=== PATIENT | male | born 1960 | race American Indian/Alaskan Native ===

== ENCOUNTER 2016-09-21 07:48 | Inpatient (IN) | payer MEDICARE, OTHER ==
[2016-09-21 07:49] VITALS: BMI 29.2
[2016-09-21] MEDS: Albuterol-Ipratrop 3 mg / 0.5 (3 ml) UD IH SCH ×3 (08:45→09:00)
[2016-09-21] MEDS ORDERED: Albuterol-Ipratrop 3 mg / 0.5 (3 ml) UD ONE ×2 (08:52→09:06)
--- NOTE | 2016-09-21 09:00 | C.PDOC ---
Addendum entered and electronically signed by Darlene Agarwal PA-C 09/21/16 13 :40: Addendum Addendum: 09/21/16 12:39 Dr Flowers calls ED back he requests admitting to Dr Hobbs service and will see patient at consult Contact Dr Hobbs who accepts patient onto service Original Note: History Of Present Illness <Darlene Agarwal - Last Filed: 09/21/16 13:39> <Grace Marshall - Last Filed: 09/21/16 18:27> 55 y/o male, PMHx of renal transplant and HIV, presents to ED with complaint of "feeling like fluid in my lungs", generalized weakness, and right side chest pain worsening over the last 2-3 days. Patient notes he has had difficulty breathing with some associated chest tightness. He otherwise denies fever, chills, abdominal pain, nausea, vomiting, diarrhea, injury or trauma, or history of asthma. (Darlene Agarwal) History Per: Patient History/Exam Limitations: no limitations Onset/Duration Of Symptoms: Days (2-3) Current Symptoms Are (Timing): Worse Recent travel outside of the [place]: No <Darlene Agarwal - Last Filed: 09/21/16 13:39> <Grace Marshall - Last Filed: 09/21/16 18:27> Time Seen by Provider: 09/21/16 08:38 Chief Complaint (Nursing): Chest Pain Past Medical History Reviewed: Historical Data, Nursing Documentation, Vital Signs - Medical History PMH: HIV, HTN, Chronic Kidney Disease (RIGHT KIDNEY TRANSPLANT 2012) Family History: States: Unknown Family Hx - Social History Hx Tobacco Use: No Hx Alcohol Use: No Hx Substance Use: No - Immunization History Hx Tetanus Toxoid Vaccination: Yes Hx Influenza Vaccination: Yes Hx Pneumococcal Vaccination: Yes <Darlene Agarwal - Last Filed: 09/21/16 13:39> Review Of Systems Except As Marked, All Systems Reviewed And Found Negative. Constitutional: Negative for: Fever, Chills Cardiovascular: Negative for: Chest Pain Respiratory: Positive for: Wheezing. Negative for: Cough, Shortness of Breath Gastrointestinal: Negative for: Nausea, Vomiting, Abdominal Pain, Diarrhea <Darlene Agarwal - Last Filed: 09/21/16 13:39> Physical Exam - Physical Exam Appears: Non-toxic, Other (mild respiratory distress) Skin: Warm, Dry Head: Atraumatic, Normacephalic Eye(s): bilateral: Normal Inspection, EOMI Nose: Normal Oral Mucosa: Moist Throat: Normal, No Erythema, No Exudate Neck: Normal ROM Chest: Symmetrical, Tenderness (right chest wall) Cardiovascular: Rhythm Regular, No Murmur Respiratory: No Accessory Muscle Use, No Rales, No Rhonchi, Wheezing ( bilaterally) Gastrointestinal/Abdominal: Soft, No Tenderness, No Distention, No Guarding, No Rebound, Other (obese) Back: Normal Inspection, No CVA Tenderness Extremity: Normal ROM, No Pedal Edema, Capillary Refill (< 2 sec. ), Other (AV fistula right arm) Neurological/Psych: Oriented x3, Normal Speech Gait: Steady <Darlene Agarwal - Last Filed: 09/21/16 13:39> ED Course And Treatment - Laboratory Results Result Diagrams: 09/21/16 08:50 09/21/16 08:50 Lab Interpretation: Abnormal ECG: Interpreted By Me, Viewed By Me ECG Rhythm: Sinus Tachycardia ECG Interpretation: No Acute Changes Rate From EC O2 Sat by Pulse Oximetry: 96 (RA) Pulse Ox Interpretation: Normal - Radiology CXR: Interpreted by Me, Viewed By Me CXR Interpretation: Yes: Infiltrates (right lower lobe) <Darlene Agarwal - Last Filed: 09/21/16 13:39> - Laboratory Results Result Diagrams: 09/21/16 08:50 09/21/16 08:50 <Grace Marshall - Last Filed: 09/21/16 18:27> Medical Decision Making <Darlene Agarwal - Last Filed: 09/21/16 13:39> <Grace Marshall - Last Filed: 09/21/16 18:27> Medical Decision Making: Plan: * duoneb treatment * EKG * CxR * Bloodwork * Reassess Progress: Labs show leukocytosis and XRay shows right lobar pneumonia. order blood cultures and IV antibiotics case discussed with Dr Marshall who agrees with plan for admission Attempt to contact Dr Flowers with no response Spoke with medicine transfer station attendant Dr Hosea Oseguera who accepts patient to service (Darlene Agarwal) Disposition - Disposition Disposition Time: 11:10 - POA Present On Arrival: None Core Measure Indicators: Pneumonia <Darlene Agarwal - Last Filed: 09/21/16 13:39> <Grace Marshall - Last Filed: 09/21/16 18:27> - Disposition Condition: STABLE - Clinical Impression Clinical Impression: Pneumonia - PA / ROD BUSTER / Resident Statement / has reviewed & agrees with the documentation as recorded. - Scribe Statement The provider has reviewed the documentation as recorded by the Scribe <Darlene Agarwal - Last Filed: 09/21/16 13:39> - PA / ROD BUSTER / Resident Statement / has reviewed & agrees with the documentation as recorded. <Grace Marshall - Last Filed: 09/21/16 18:27> - Scribe Statement Grey Shoemaker Provider Scribe Attestation: All medical record entries made by the Scribe were at my direction and personally dictated by me. I have reviewed the chart and agree that the record accurately reflects my personal performance of the history, physical exam, medical decision making, and the department course for this patient. I have also personally directed, reviewed, and agree with the discharge instructions and disposition. (Darlene Agarwal)
[2016-09-21 09:03] LABS: BASO # 0.1 K/uL (0.0-0.2); BASO % 0.4 % (0.0-2.0); EOS % 0.3 % (0.0-4.0); HEMATOCRIT 42.2 % (35.0-51.0); LYMPH # 0.5 K/uL (1.0-4.3); LYMPH % 2.9 % (20.0-40.0); MEAN CELL VOLUME 68.8 fL (80.0-94.0); MEAN CORPUSCULAR HEMOGLOBIN 21.3 pg (27.0-31.0); MEAN PLATELET VOLUME 9.2 fL (7.2-11.7); MONO # 1.3 K/uL (0.0-0.8); MONO % 7.3 % (0.0-10.0); PLATELET COUNT 154 K/uL (130-400); RED CELL DISTRIBUTION WIDTH 14.7 % (11.5-14.5); WHITE BLOOD COUNT 18.1 K/uL (4.8-10.8)
[2016-09-21 09:09] LABS: INR 1.1
[2016-09-21 09:10] LABS: CHLORIDE 102 mmol/L (98-107); POTASSIUM 4.6 mmol/L (3.6-5.2); SODIUM 138 mmol/L (132-148)
[2016-09-21 09:12] LABS: AST/SGOT 18 U/L (17-59); CARBON DIOXIDE 26 mmol/L (22-30); GFR AFRICAN-AMERICAN 54
[2016-09-21 09:13] LABS: ALB/GLOB RATIO 1.3 (1.0-2.1); ALKALINE PHOSPHATASE 79 U/L (38-126); ALT/SGPT 24 U/L (21-72); BLOOD UREA NITROGEN 17 mg/dL (9-20); CALCIUM 9.2 mg/dl (8.6-10.4); GLUCOSE,RANDOM 122 mg/dL (75-110); TOTAL PROTEIN 7.9 g/dL (6.3-8.3)
[2016-09-21] MEDS ORDERED: Sodium Chloride 0.9% 1,000 ML IV ONE (09:41)
[2016-09-21] MEDS ORDERED: Moxifloxacin IV 400mg/250ml NS 400 MG/250 ML BAG IV STA (09:41)
[2016-09-21] MEDS ORDERED: Moxifloxacin IV 400mg/250ml NS 400 MG/250 ML BAG IVPB ONE (10:00)
[2016-09-21 10:01] LABS: NEUTROPHIL 85 % (50-75); TOTAL CELLS COUNTED 100
[2016-09-21 10:03] LABS: LARGE PLATELETS PRESENT
[2016-09-21 11:38] LABS: RBC URINE 1 /hpf (0-3); URINE BILIRUBIN NEGATIVE (NEGATIVE); URINE BLOOD 1+ (NEGATIVE); URINE COLOR Yellow (YELLOW); URINE GLUCOSE (UA) NORMAL (Normal); URINE KETONE NEGATIVE (NEGATIVE); URINE LEUKOCYTE ESTERASE NEG Leu/uL (Negative); URINE PROTEIN 2+ mg/dL (NEGATIVE); WBC URINE 2 /hpf (0-5)
--- NOTE | 2016-09-21 12:19 | RAD ---
Chest x-ray single frontal view History: Shortness of breath. Comparison: None available. Findings: Moderate to severe venous congestion. Confluent airspace consolidative changes at the right lung base. Cardiomegaly. Biapical pleural thickening. Degenerative changes in the spine and shoulders. Impression: Moderate to severe venous congestion. Confluent airspace consolidative changes at the right lung base. Cardiomegaly.
[2016-09-21 14:20] VITALS: RESP 20
[2016-09-21] MEDS ORDERED: ETRAVIRINE 200 MG PO SCH (14:45)
[2016-09-21] MEDS ORDERED: ATROPINE PO SCH (14:45)
[2016-09-21] MEDS ORDERED: MYCOPHENOLATE SODIUM 180 MG PO SCH (14:45)
[2016-09-21] MEDS ORDERED: DIPHENOXYLATE PO SCH (14:45)
[2016-09-21] MEDS: Oxycodone/Acetaminophen 5/325 mg Tab PO PRN (17:18)
[2016-09-21] MEDS: Albuterol-Ipratrop 3 mg / 0.5 (3 ml) UD INH SCH (19:10)
--- NOTE | 2016-09-21 22:13 | CP.PCM.HP ---
History of Present Illness - History of Present Illness History of Present Illness: Chief complaint: Cough chest pain History present illness: 55-year-old male with history of HIV, renal failure, status post a kidney transplant came to the emergency room with the complaining of 3 days history of cough, right-sided chest pain, and not feeling well. Patient last week went to see the associate professor of counseling. Today he supposed to be seeing the infectious disease specialist, but his condition got worse he came into the emergency room. In the emergency room he was having increasing cough, and mucus production, which was white in color, he was also not feeling well, chills, and associated with right-sided pleuritic chest pain. The pain was significantly worse, took Percocet for the pain. Taking deep breath also causes increasing pain on the right side. He did not have any nausea, no vomiting noted. But poor appetite noted. Patient is making urine at this time, he denies any headache, no dizziness noted. No recent travel, but no sick exposure Past medical history: HIV disease, kidney failure, status post transplant Surgical history: Renal transplant Allergy: No known drug allergy Personal history: Patient is a nonsmoker, he denies any alcohol. Patient lives with the family members. No sick exposure recently Family history significant for kidney disease Review of system: Complaining of no headache, complaining of cough, with the minimal mucus production, right-sided chest discomfort, associate with the chest pain, pleuritic in nature. No nausea vomiting noted. Denies any diarrhea, no rash. Leg swelling negative On examination: Vital signs reviewed Oxygen saturation is normal chest good air entry bilaterally, expiratory wheezing and rales noted bilaterally regular heart sound, nontender abdomen. Extent is no pedal edema Chest x-ray showing evidence of right lower lung pneumonia. Labs elevated WBC noted. Mild elevation of the creatinine noted Assessment/condition: 55-year-old male with history of HIV disease, kidney transplant on medications. Currently patient is on anti-retroviral, as well as immunosuppressive treatment. Being maintained with medications. History of undetectable viral load. Patient now admitted with a possible acute community-acquired pneumonia on the right lower lung. We'll get a CT scan of the chest. Currently on Avelox. Infectious disease evaluation. Bronchial dilators. Kidney function monitoring. We'll follow the patient Present on Admission - Present on Admission Any Indicators Present on Admission: No History of DVT/PE: No History of Uncontrolled Diabetes: No Urinary Catheter: No Decubitus Ulcer Present: No Past Patient History - Past Medical History & Family History Past Medical History?: Yes - Past Social History Smoking Status: Never Smoked - CARDIAC Hx Hypertension: Yes - PULMONARY Hx Respiratory Disorders: No - NEUROLOGICAL Hx Neurological Disorder: No - HEENT Hx HEENT Problems: No - RENAL Hx Chronic Kidney Disease: Yes (RIGHT KIDNEY TRANSPLANT 2012) - ENDOCRINE/METABOLIC Hx Endocrine Disorders: No - HEMATOLOGICAL/ONCOLOGICAL Hx Human Immunodeficiency Virus (HIV): Yes - INTEGUMENTARY Hx Dermatological Problems: No - MUSCULOSKELETAL/RHEUMATOLOGICAL Hx Musculoskeletal Disorders: No Hx Falls: No - GASTROINTESTINAL Hx Gastrointestinal Disorders: No - GENITOURINARY/GYNECOLOGICAL Hx Genitourinary Disorders: Yes Hx Prostate Problems: Yes - PSYCHIATRIC Hx Substance Use: No - SURGICAL HISTORY Hx Surgeries: Yes Hx Arteriovenous Shunt: Yes Hx Kidney Transplant: Yes (RIGHT KIDNEY) Hx Vascular Access Device: Yes (RIGHT AV FISTULA) - ANESTHESIA Hx Anesthesia: Yes Hx Anesthesia Reactions: No Meds Allergies/Adverse Reactions: Allergies Allergy/AdvReac Type Severity Reaction Status Date / Time No Known Allergies Allergy Verified 09/21/16 08:00 Results - Vital Signs Recent Vital Signs: Last Vital Signs Temp 98.6 F 09/21/16 15:05 Pulse 95 H 09/21/16 19:13 Resp 20 09/21/16 15:05 BP 132/73 09/21/16 15:05 Pulse Ox 96 09/21/16 15:05 - Labs Result Diagrams: 09/21/16 08:50 09/21/16 08:50
[2016-09-22] MEDS: Albuterol-Ipratrop 3 mg / 0.5 (3 ml) UD INH SCH ×4 (03:29→19:26)
[2016-09-22 06:53] LABS: BASO % 0.4 % (0.0-2.0); EOS # 0.2 K/uL (0.0-0.7); EOS % 1.3 % (0.0-4.0); HEMATOCRIT 41.2 % (35.0-51.0); LYMPH # 1.2 K/uL (1.0-4.3); LYMPH % 10.3 % (20.0-40.0); MEAN CORPUSCULAR HEMOGLOBIN 21.4 pg (27.0-31.0); MEAN CORPUSCULAR HGB CONC 30.9 g/dL (33.0-37.0); MEAN PLATELET VOLUME 9.5 fL (7.2-11.7); MONO # 1.2 K/uL (0.0-0.8); MONO % 10.3 % (0.0-10.0); NRBC % 0.1 % (0.0-2.0); RED CELL DISTRIBUTION WIDTH 15.3 % (11.5-14.5)
[2016-09-22] MEDS: Oxycodone/Acetaminophen 5/325 mg Tab PO PRN ×2 (06:56→15:17)
[2016-09-22 07:31] LABS: CHLORIDE 103 mmol/L (98-107); POTASSIUM 4.4 mmol/L (3.6-5.2); SODIUM 138 mmol/L (132-148)
[2016-09-22 07:34] LABS: BLOOD UREA NITROGEN 17 mg/dL (9-20); CARBON DIOXIDE 23 mmol/L (22-30); GFR AFRICAN-AMERICAN > 60; GLUCOSE,RANDOM 105 mg/dL (75-110)
[2016-09-22] MEDS: Tmp-Smz 800 mg-160 mg DS Tab PO SCH (08:30)
[2016-09-22] MEDS ORDERED: ETRAVIRINE 200 MG PO SCH (10:00)
[2016-09-22] MEDS: Moxifloxacin IV 400mg/250ml NS 400 MG/250 ML BAG IVPB SCH (10:49)
--- NOTE | 2016-09-22 10:52 | CT ---
PROCEDURE: CT Chest without contrast HISTORY: pneumonia COMPARISON: None. TECHNIQUE: Contiguous axial images were obtained through the chest without intravenous contrast enhancement. Sagittal and coronal reconstructions were performed. Radiation dose (DLP): 708.98 mGy-cm. This CT exam was performed using one or more of the following dose reduction techniques: Automated exposure control, adjustment of the mA and/or kV according to patient size, and/or use of iterative reconstruction technique. FINDINGS: LUNGS: Dense consolidation in the anterior segment right upper lobe. Followup to clearing to exclude underlying neoplasm. Patchy opacities are seen elsewhere throughout the right upper lobe, likely reflecting an infectious process. There is no other opacity identified elsewhere. Minimal small airways disease noted in the right middle lobe, manifested as a tree-in-bud appearance. 3 mm calcified nodule, subpleural, left apex, likely granulomatous. MEDIASTINUM: Unremarkable thoracic aorta. No aneurysm. Normal sized heart. Main pulmonary artery unremarkable. No vascular congestion. No lymphadenopathy. PLEURA: No pleural fluid. No pneumothorax. BONES: No fracture. No destructive lesion. UPPER ABDOMEN: Severely atrophic kidneys bilaterally consistent with chronic renal disease. OTHER FINDINGS: None. IMPRESSION: Right upper lobe pulmonary infiltrate. Followup to clearing advised to exclude underlying neoplasm. Minimal small airways disease right middle lobe common nonspecific. Atrophic kidneys consistent with chronic renal disease.
--- NOTE | 2016-09-22 14:08 | CP.PCM.CON ---
History of Present Illness - History of Present Illness History of Present Illness: History present illness: 55-year-old male with history of HIV, renal failure, status post a kidney transplant came to the emergency room with the complaining of 3 days history of cough, right-sided chest pain, and not feeling well. Patient last week went to see the major sales associate. Today he supposed to be seeing the infectious disease specialist, but his condition got worse he came into the emergency room. In the emergency room he was having increasing cough, and mucus production, which was white in color, he was also not feeling well, chills, and associated with right-sided pleuritic chest pain. The pain was significantly worse, took Percocet for the pain. Taking deep breath also causes increasing pain on the right side. He did not have any nausea, no vomiting noted. But poor appetite noted. Patient is making urine at this time, he denies any headache, no dizziness noted. No recent travel, but no sick exposure Past medical history: HIV disease, kidney failure, status post transplant Surgical history: Renal transplant Allergy: No known drug allergy Personal history: Patient is a nonsmoker, he denies any alcohol. Patient lives with the family members. No sick exposure recently OTHER PMH: HIV NEPHROPATHY DONOR KIDNEY TRANSPLANT HIV DISEASE HTN PSH: KIDNEY TRANSPLANT AV FISTULA RIGHT ELBOW REPAIR CONSULT DICTATED AGREE WITH TREATMENT FOR PNEUMONIA ADD MYFORTIC- NOT BEING GIVEN MONITOR RENAL FUNCTION Past Patient History - Past Medical History & Family History Past Medical History?: Yes - Past Social History Smoking Status: Never Smoked - CARDIAC Hx Hypertension: Yes - PULMONARY Hx Respiratory Disorders: No - NEUROLOGICAL Hx Neurological Disorder: No - HEENT Hx HEENT Problems: No - RENAL Hx Chronic Kidney Disease: Yes (RIGHT KIDNEY TRANSPLANT 2012) - ENDOCRINE/METABOLIC Hx Endocrine Disorders: No - HEMATOLOGICAL/ONCOLOGICAL Hx Human Immunodeficiency Virus (HIV): Yes - INTEGUMENTARY Hx Dermatological Problems: No - MUSCULOSKELETAL/RHEUMATOLOGICAL Hx Musculoskeletal Disorders: No Hx Falls: No - GASTROINTESTINAL Hx Gastrointestinal Disorders: No - GENITOURINARY/GYNECOLOGICAL Hx Genitourinary Disorders: Yes Hx Prostate Problems: Yes - PSYCHIATRIC Hx Substance Use: No - SURGICAL HISTORY Hx Surgeries: Yes Hx Arteriovenous Shunt: Yes Hx Kidney Transplant: Yes (RIGHT KIDNEY) Hx Vascular Access Device: Yes (RIGHT AV FISTULA) - ANESTHESIA Hx Anesthesia: Yes Hx Anesthesia Reactions: No Meds Allergies/Adverse Reactions: Allergies Allergy/AdvReac Type Severity Reaction Status Date / Time No Known Allergies Allergy Verified 09/21/16 08:00 - Medications Medications: Current Medications Albuterol/Ipratropium (Duoneb 3 Mg/0.5 Mg (3 Ml) Ud) 3 ml INH RQ6 [facility] Last Admin: 09/22/16 13:19 Dose: 3 ml Darunavir (Prezista) 600 mg PO BID [facility] Last Admin: 09/22/16 10:47 Dose: 600 mg Heparin Sodium (Porcine) (Heparin) 5,000 units SC Q12 [facility] Last Admin: 09/22/16 10:48 Dose: 5,000 units Home Med (Mycophenolate Sodium [Mycophenolic Acid]) 180 mg PO DAILY [facility] Last Admin: 09/21/16 15:12 Dose: Not Given Home Med (Etravirine [Intelence]) 200 mg PO BID [facility] Moxifloxacin HCl (Avelox Iv 400mg/250ml Ns) 400 mg in 250 mls @ 167 mls/hr IVPB Q24H [facility] Last Admin: 09/22/16 10:49 Dose: 167 mls/hr Oxycodone/Acetaminophen (Percocet 5/325 Mg Tab) 1 tab PO Q6H PRN PRN Reason: Pain, severe (8-10) Stop: 09/24/16 16:32 Last Admin: 09/22/16 06:56 Dose: 1 tab Prednisone (Prednisone Tab) 5 mg PO DAILY [facility] Last Admin: 09/22/16 10:47 Dose: 5 mg Raltegravir (Isentress) 400 mg PO BID [facility] Last Admin: 09/22/16 10:45 Dose: 400 mg Ritonavir (Norvir) 100 mg PO BID [facility] Tacrolimus (Prograf Cap) 0.5 mg PO QWK [facility] Trimethoprim/Sulfamethoxazole (Bactrim Ds Tab) 1 tab PO MWF [facility] Last Admin: 09/22/16 08:30 Dose: 1 tab Results - Vital Signs Recent Vital Signs: Last Vital Signs Temp 98.4 F 09/22/16 07:34 Pulse 98 H 09/22/16 07:34 Resp 20 09/22/16 07:34 BP 132/82 09/22/16 07:34 Pulse Ox 96 09/22/16 07:34 - Labs Result Diagrams: 09/22/16 06:15 09/22/16 06:15 Labs: Laboratory Results - last 24 hr 09/22/16 09/22/16 06:15 06:15 WBC 12.0 H RBC 5.97 H Hgb 12.7 Hct 41.2 MCV 69.0 L MCH 21.4 L MCHC 30.9 L RDW 15.3 H Plt Count 162 MPV 9.5 Neut % (Auto) 77.7 H Lymph % (Auto) 10.3 L [place] % (Auto) 10.3 H Eos % (Auto) 1.3 Baso % (Auto) 0.4 Neut # 9.3 H Lymph # 1.2 [place] # 1.2 H Eos # 0.2 Baso # 0.0 Sodium 138 Potassium 4.4 Chloride 103 Carbon Dioxide 23 Anion Gap 16 BUN 17 Creatinine 1.4 Est GFR ( Amer) > 60 Est GFR (Non-Af Amer) 52 Random Glucose 105 Calcium 9.0
--- NOTE | 2016-09-22 16:40 | CP.PCM.CON ---
History of Present Illness - History of Present Illness History of Present Illness: INFECTIOUS DISEASE CONSULTATION [place] GRAMAJO MD, FACP 3T 351-B 09/22/2016 CHART REVIEWED PT EXAMINED CASE DISCUSSED THIS PT IS A 55 YEAR OLD AAM WHO PRESENTS TO ED YESTERDAY WITH RIGHT SIDED CHEST DISCOMFORT, WEAKNESS, COUGH AND FATIGUE. HE APPARENT[facility] UNTIL ABOUT 3 DAYS PRIOR TO ADMISSION. AGAIN HE PRESENTS WITH COUGH, PLEURITIC CHEST PAIN ON THE RIGHT SIDE AND EASY FATIGABILITY. OF NOTE, HE DOES HAVE DIFFICULTY IN EXPRESSING HIMSELF. PMHX: HIV DISEASE CHRONIC KIDNEY DISEASE REQUIRING A KIDNEY TRANSPLANT, APPARENTLY ON HIS RIGHT LOWER ABDOMEN SITE(?). HTN DYSLIPIDEMIA COMPLIANCE AND ADHERENCE ARE ALWAYS AN ISSUE WITH HIM, INTERMITTENTLY. DENIES ALLERGIES TO MEDS DENIES RECENT TOBACCO USE DENIES RECENT ETOH FAMILY HX IS NOT APPLICABLE NOR AVAILABLE PRESENTLY ROS: FATIGUE COUGH RIGHT CHEST PAIN WITH BREATHING FEELING OF COLD CHILLS VS REVIEWED AND DISCUSSED WITH ER STAFF, ADMITTING PHYSICIAN DR MUNSON AWAKE BUT TIRES EASILY, WANTS TO SLEEP SUPPLE NECK CHEST DECREASED BREATH SOUNDS WITH RALES AND RHONCHI COR RATE IS NOTED ABD IS SOFT NO TENDERNESS EXT NO CYANOSIS CXR; RIGHT LUNG INFILTRATE WBC: 18,000 IMPRESSION: RIGHT LUNG PNEUMONIA, LEUKOCYTOSIS KIDNEY TRANSPLANT-NEEDS HIS CHRONIC SUPPRESSIVE MEDICINES, ESPECIALLY SINCE HE LIVES ALONE, MADE PHARMACY AWARE. Review of Systems - Constitutional Constitutional: Anorexia, Daytime Sleepiness, Fatigue, Lethargy, Weakness - EENT Eyes: absent: As Per HPI, Blind Spots, Blurred Vision, Change in Vision, Decreased Night Vision, Diplopia, Discharge, Dry Eye, Exophthalmos, Floaters, Irritation, Itchy Eyes, Loss of Peripheral Vision, Pain, Photophobia, Requires Corrective Lenses, Sees Flashes, Spots in Vision, Tunnel Vision, Other Visual Disturbances, Loss of Vision, Other Ears: absent: As Per HPI, Decreased Hearing, Ear Discharge, Ear Pain, Tinnitus, Abnormal Hearing, Disequilibrium, Dizziness, Other Nose/Mouth/Throat: absent: Nasal Obstruction, Bleeding Gums, Change in Voice, Dry Mouth, Mouth Lesions - Breasts Additional comments: MALE - Cardiovascular Cardiovascular: Dyspnea on Exertion, Orthopnea Additional comments: RIGHT PLEURITIC CHEST PAIN. - Respiratory Respiratory: Cough, Dyspnea on Exertion, Pain on Inspiration, Chest Congestion, Pain with Coughing - Gastrointestinal Gastrointestinal: Early Satiety. absent: Abdominal Pain - Genitourinary Genitourinary: Difficulty Urinating - Musculoskeletal Musculoskeletal: Arthralgias, Muscle Weakness, Myalgias - Integumentary Integumentary: absent: Dry Skin, New Lesions, Rash - Neurological Neurological: Weakness - Psychiatric Psychiatric: Difficulty Concentrating Past Patient History - Tetanus Immunizations Tetanus Immunization: Unknown - Past Medical History & Family History Past Medical History?: Yes - Past Social History Smoking Status: Never Smoked Chewing Tobacco Use: No Cigar Use: No Alcohol: Occasional Drugs: Denies Home Situation {Lives}: Alone - CARDIAC Hx Cardiac Disorders: Yes Hx Hypercholesterolemia: Yes ((?)) Hx Hypertension: Yes - PULMONARY Hx Respiratory Disorders: No Hx Pneumonia: No - NEUROLOGICAL Hx Neurological Disorder: No - HEENT Hx HEENT Problems: No - RENAL Hx Chronic Kidney Disease: Yes (RIGHT KIDNEY TRANSPLANT 2012) - ENDOCRINE/METABOLIC Hx Endocrine Disorders: No - HEMATOLOGICAL/ONCOLOGICAL Hx Blood Disorders: Yes Hx AIDS: Yes Hx Human Immunodeficiency Virus (HIV): Yes Hx Shingles: Yes ((?)) - INTEGUMENTARY Hx Dermatological Problems: No - MUSCULOSKELETAL/RHEUMATOLOGICAL Hx Musculoskeletal Disorders: No Hx Falls: No - GASTROINTESTINAL Hx Gastrointestinal Disorders: No - GENITOURINARY/GYNECOLOGICAL Hx Genitourinary Disorders: Yes Hx Prostate Problems: Yes Hx Urinary Tract Infection: Yes - PSYCHIATRIC Hx Substance Use: No - SURGICAL HISTORY Hx Surgeries: Yes Hx Arteriovenous Shunt: Yes Hx Kidney Transplant: Yes ( KIDNEY TRANSPLANT 2012) Hx Vascular Access Device: Yes (RIGHT AV FISTULA) - ANESTHESIA Hx Anesthesia: Yes Hx Anesthesia Reactions: No Meds Allergies/Adverse Reactions: Allergies Allergy/AdvReac Type Severity Reaction Status Date / Time No Known Allergies Allergy Verified 09/21/16 08:00 - Medications Medications: Current Medications Albuterol/Ipratropium (Duoneb 3 Mg/0.5 Mg (3 Ml) Ud) 3 ml INH RQ6 [facility] Last Admin: 09/22/16 13:19 Dose: 3 ml Darunavir (Prezista) 600 mg PO BID [facility] Last Admin: 09/22/16 10:47 Dose: 600 mg Heparin Sodium (Porcine) (Heparin) 5,000 units SC Q12 [facility] Last Admin: 09/22/16 10:48 Dose: 5,000 units Home Med (Etravirine [Intelence]) 200 mg PO BID [facility] Home Med (Mycophenolate Sodium [Mycophenolic Acid]) 540 mg PO BID [facility] Moxifloxacin HCl (Avelox Iv 400mg/250ml Ns) 400 mg in 250 mls @ 167 mls/hr IVPB Q24H [facility] Last Admin: 09/22/16 10:49 Dose: 167 mls/hr Oxycodone/Acetaminophen (Percocet 5/325 Mg Tab) 1 tab PO Q6H PRN PRN Reason: Pain, severe (8-10) Stop: 09/24/16 16:32 Last Admin: 09/22/16 15:17 Dose: 1 tab Prednisone (Prednisone Tab) 5 mg PO DAILY [facility] Last Admin: 09/22/16 10:47 Dose: 5 mg Raltegravir (Isentress) 400 mg PO BID [facility] Last Admin: 09/22/16 10:45 Dose: 400 mg Ritonavir (Norvir) 100 mg PO BID [facility] Last Admin: 09/22/16 10:47 Dose: 100 mg Tacrolimus (Prograf Cap) 0.5 mg PO QWK [facility] Trimethoprim/Sulfamethoxazole (Bactrim Ds Tab) 1 tab PO MWF [facility] Last Admin: 09/22/16 08:30 Dose: 1 tab Physical Exam - Constitutional Appears: Non-toxic, Older Than Stated Age Additional comments: DIFFICULTY MAKING HIMSELF UNDERSTOOD - Head Exam Head Exam: ATRAUMATIC - Eye Exam Eye Exam: Normal appearance - ENT Exam ENT Exam: Mucous Membranes Moist - Respiratory Exam Respiratory Exam: Decreased Breath Sounds, Rales, Rhonchi - Cardiovascular Exam Cardiovascular Exam: REGULAR RHYTHM - GI/Abdominal Exam GI & Abdominal Exam: Normal Bowel Sounds, Soft. absent: Tenderness - Rectal Exam Rectal Exam: Deferred - Neurological Exam Neurological exam: Alert, Oriented x3 Additional comments: AFFECT NOTED - Psychiatric Exam Psychiatric exam: Flat Affect - Skin Skin Exam: Dry, Intact, Warm Results - Vital Signs Recent Vital Signs: Last Vital Signs Temp 98.4 F 09/22/16 07:34 Pulse 98 H 09/22/16 07:34 Resp 20 09/22/16 07:34 BP 132/82 09/22/16 07:34 Pulse Ox 96 09/22/16 07:34 - Labs Result Diagrams: 09/22/16 06:15 09/22/16 06:15 Labs: Laboratory Results - last 24 hr 09/22/16 09/22/16 06:15 06:15 WBC 12.0 H RBC 5.97 H Hgb 12.7 Hct 41.2 MCV 69.0 L MCH 21.4 L MCHC 30.9 L RDW 15.3 H Plt Count 162 MPV 9.5 Neut % (Auto) 77.7 H Lymph % (Auto) 10.3 L [place] % (Auto) 10.3 H Eos % (Auto) 1.3 Baso % (Auto) 0.4 Neut # 9.3 H Lymph # 1.2 [place] # 1.2 H Eos # 0.2 Baso # 0.0 Sodium 138 Potassium 4.4 Chloride 103 Carbon Dioxide 23 Anion Gap 16 BUN 17 Creatinine 1.4 Est GFR ( Amer) > 60 Est GFR (Non-Af Amer) 52 Random Glucose 105 Calcium 9.0 Assessment & Plan (1) Pneumonia Status: Acute Priority: High (2) Kidney transplant recipient Status: Chronic Priority: Medium Comment: WILL NEED ALL HIS COMPLEX MEDS TO CONTINUE TO AVOID RESISTANCE AND AVOID MEDICATION FAILURE. (3) HIV (human immunodeficiency virus infection) Status: Chronic Priority: Low Comment: WILL NEED ALL HIS COMPLEX MEDS TO CONTINUE TO AVOID RESISTANCE AND AVOID MEDICATION FAILURE.
[2016-09-22] MEDS ORDERED: MYCOPHENOLATE SODIUM 540 MG PO SCH (18:00)
[2016-09-22] MEDS: ETRAVIRINE 200 MG PO SCH (18:32)
--- NOTE | 2016-09-22 19:25 | CON ---
DATE: 09/22/2016 The patient is a 55-year-old man who has history of HIV and status post kidney transplantation presen ts with several days of cough, wheezing, sputum production of white sputum, right pleuritic chest lorenza n, but no fevers and chills. He went to the Emergency Department and was diagnosed with pneumonia on 09/21. He was admitted and now is being treated for pneumonia. PAST MEDICAL HISTORY: HIV positive, HIV nephropathy, hypertension. He is status post a don or kidney transplantation in 2012 without any acute rejections. He has known chronic kidney disease stage III. PAST SURGICAL HISTORY: Aforementioned kidney transplantation. He had right elbow repair after traum a and a right arm AV fistula. MEDICATIONS: Include Prograf 0.5 mg weekly, Raltegravir and ritonavir and darunavir for HIV, he is o n Myfortic 180 mg 3 tablets twice a day, prednisone 5 mg daily, Bactrim single strength 1 tablet 3 ti mes weekly. SOCIAL HISTORY: Negative for smoking or alcohol abuse. He has history of cocaine snorting in the re mote past. FAMILY HISTORY: Significant for father who had been on maintenance hemodialysis shortly before his d eath many years ago. REVIEW OF SYSTEMS: As aforementioned has dyspnea, coughing, wheezing, sputum production, right pleur itic chest pain, no fevers and chills, no dysuria or gross hematuria. All other review of systems ar e negative. PHYSICAL EXAMINATION: GENERAL: He is a well-developed man in no acute distress when seen. VITAL SIGNS: Blood pressure 132/82, temperature 98.4, pulse is 98, pulse ox 96% on room air. HEENT: He is anicteric. Mouth was clear. NECK: No JVD. LUNGS: Showed increased wheezing and rhonchi throughout both lung vanessa. HEART: Regular rhythm, no murmur. ABDOMEN: Soft, benign. No mass or organomegaly. Right allograft in the right lower quadrant which was soft and nontender. EXTREMITIES: No peripheral edema. NEUROLOGIC: No focal deficits. CAT scan of the chest revealed a right upper lobe consolidation with patchy opacities seen elsewhere in the right upper lobe. LABORATORY DATA: Rest of labs revealed 2+ proteinuria, a white count of 18.1 on admission, now is 12 .0, hemoglobin 12.7, BUN 17, creatinine 1.4. Electrolytes unremarkable. IMPRESSION: The patient has acute pneumonia, status post donor kidney transplantation with stable kidney function, chronic kidney disease stage III, human immunodeficiency virus disease. PLAN: Will be for IV antibiotics as is being done. I will follow up renal function closely and elec trolytes. I would resume the Myfortic which is not being given and I would give this as it was presc ribed previously. Will follow up. Arnulfo Valencia MD cc: [id number] TT: 09/22/2016 19:23:52 Confirmation # [id number] Dictation # [id number]
--- NOTE | 2016-09-22 20:15 | CP.PCM.PN ---
Subjective - Date & Time of Evaluation Date of Evaluation: 09/22/16 Time of Evaluation: 20:14 - Subjective Subjective: Patient is feeling somewhat better. Right-sided chest pain is improving. Cough is less. No fever today. 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 On examination: Vital signs stable. Chest good air entry bilaterally regular heart sound nontender abdomen, no pedal edema CT scan of the chest is showing evidence of right middle lobe infiltrate. Bronchopneumonia noted. Labs reviewed. WBC better, renal functions improving Assessment and recommendation: 55-year-old male with history of HIV disease, renal insufficiency, history renal transplant. Admitted with pneumonia. Neck on antibiotic. Will continue the current treatment. Will follow the patient Objective - Vital Signs/Intake and Output Vital Signs (last 24 hours): Temp Pulse Resp BP Pulse Ox 98.2 F 71 20 120/64 97 09/22/16 15:15 09/22/16 15:15 09/22/16 15:15 09/22/16 15:15 09/22/16 15:15 Intake and Output: 09/22/16 09/23/16 18:59 06:59 Intake Total 500 Balance 500 - Medications Medications: Current Medications Albuterol/Ipratropium (Duoneb 3 Mg/0.5 Mg (3 Ml) Ud) 3 ml INH RQ6 [facility] Last Admin: 09/22/16 19:26 Dose: 3 ml Darunavir (Prezista) 600 mg PO BID [facility] Last Admin: 09/22/16 17:38 Dose: 600 mg Heparin Sodium (Porcine) (Heparin) 5,000 units SC Q12 [facility] Last Admin: 09/22/16 10:48 Dose: 5,000 units Moxifloxacin HCl (Avelox Iv 400mg/250ml Ns) 400 mg in 250 mls @ 167 mls/hr IVPB Q24H [facility] Last Admin: 09/22/16 10:49 Dose: 167 mls/hr Mycophenolate Mofetil (Cellcept Cap) 750 mg PO BID [facility] Last Admin: 09/22/16 18:32 Dose: 750 mg Intellence 200mg 1 ea PO BID [facility] Last Admin: 09/22/16 18:32 Dose: 1 ea Oxycodone/Acetaminophen (Percocet 5/325 Mg Tab) 1 tab PO Q6H PRN PRN Reason: Pain, severe (8-10) Stop: 09/24/16 16:32 Last Admin: 09/22/16 15:17 Dose: 1 tab Prednisone (Prednisone Tab) 5 mg PO DAILY [facility] Last Admin: 09/22/16 10:47 Dose: 5 mg Raltegravir (Isentress) 400 mg PO BID [facility] Last Admin: 09/22/16 17:38 Dose: 400 mg Ritonavir (Norvir) 100 mg PO BID [facility] Last Admin: 09/22/16 10:47 Dose: 100 mg Tacrolimus (Prograf Cap) 0.5 mg PO QWK [facility] Trimethoprim/Sulfamethoxazole (Bactrim Ds Tab) 1 tab PO MWF [facility] Last Admin: 09/22/16 08:30 Dose: 1 tab - Labs Labs: 09/22/16 06:15 09/22/16 06:15 PT 13.0 SECONDS (9.7-12.2) H 09/21/16 08:50 INR 1.1 09/21/16 08:50 APTT 36 SECONDS (21-34) H 09/21/16 08:50
[2016-09-23] MEDS: Albuterol-Ipratrop 3 mg / 0.5 (3 ml) UD INH SCH ×3 (01:02→18:35)
[2016-09-23 07:37] LABS: CHLORIDE 103 mmol/L (98-107); POTASSIUM 4.2 mmol/L (3.6-5.2); SODIUM 140 mmol/L (132-148)
[2016-09-23 07:39] LABS: GFR AFRICAN-AMERICAN > 60
[2016-09-23 07:40] LABS: BLOOD UREA NITROGEN 20 mg/dL (9-20); CALCIUM 9.4 mg/dl (8.6-10.4); CARBON DIOXIDE 23 mmol/L (22-30); GLUCOSE,RANDOM 107 mg/dL (75-110); MAGNESIUM 1.5 mg/dL (1.6-2.3); PHOSPHOROUS 3.3 mg/dL (2.5-4.5)
[2016-09-23 08:21] LABS: HEMATOCRIT 41.2 % (35.0-51.0); MEAN CELL VOLUME 69.3 fL (80.0-94.0); MEAN CORPUSCULAR HEMOGLOBIN 21.5 pg (27.0-31.0); MEAN PLATELET VOLUME 9.8 fL (7.2-11.7); RED CELL DISTRIBUTION WIDTH 14.8 % (11.5-14.5)
--- NOTE | 2016-09-23 09:04 | RAD ---
HISTORY: pneumonia COMPARISON: 09/21/2016 FINDINGS: LUNGS: Mild venous congestion. Bibasilar airspace opacities. Small bilateral pleural effusions. Biapical pleural thickening. PLEURA: As above. CARDIOVASCULAR: Cardiomegaly. OSSEOUS STRUCTURES: No significant abnormalities. VISUALIZED UPPER ABDOMEN: Normal. OTHER FINDINGS: None. IMPRESSION: Mild venous congestion. Bibasilar airspace opacities. Small bilateral pleural effusions. Biapical pleural thickening.
--- NOTE | 2016-09-23 20:29 | CP.PCM.PN ---
Subjective - Date & Time of Evaluation Date of Evaluation: 09/23/16 Time of Evaluation: 20:25 - Subjective Subjective: INFECTIOUS DISEASE PROGRESS NOTE INDIA GRAMAJO MD, FACP 3T 351-B 09/23/2016 CHART REVIEWED PT EXAMINED CASE DISCUSSED CLINICALLY RESPONDING NICELY TO APPROPIATE MED/ID TREATMENT FOR POSSIBLE PNEUMONIA/COPD LUNGS DECREASED BREATH SOUNDS COR RR ABD SOFT EXT NO CYANOSIS ON AVELOX FOR PNEUMONIA, FROM ER/ED, ON HIS CHROINC SUPPRESIVE MEDS FOR HIS TRANSPLANTED KIDNEY ON HIS HIV MEDS ALSO. Objective - Vital Signs/Intake and Output Vital Signs (last 24 hours): Temp Pulse Resp BP Pulse Ox 98.2 F 71 20 120/64 97 09/22/16 15:15 09/22/16 15:15 09/22/16 15:15 09/22/16 15:15 09/22/16 15:15 - Medications Medications: Current Medications Albuterol/Ipratropium (Duoneb 3 Mg/0.5 Mg (3 Ml) Ud) 3 ml INH RQ6 [facility] Last Admin: 09/23/16 18:35 Dose: 3 ml Darunavir (Prezista) 600 mg PO BID [facility] Last Admin: 09/22/16 17:38 Dose: 600 mg Heparin Sodium (Porcine) (Heparin) 5,000 units SC Q12 [facility] Last Admin: 09/22/16 21:30 Dose: 5,000 units Moxifloxacin HCl (Avelox Iv 400mg/250ml Ns) 400 mg in 250 mls @ 167 mls/hr IVPB Q24H [facility] Last Admin: 09/22/16 10:49 Dose: 167 mls/hr Mycophenolate Mofetil (Cellcept Cap) 750 mg PO BID [facility] Last Admin: 09/22/16 18:32 Dose: 750 mg Intellence 200mg 1 ea PO BID [facility] Last Admin: 09/22/16 18:32 Dose: 1 ea Oxycodone/Acetaminophen (Percocet 5/325 Mg Tab) 1 tab PO Q6H PRN PRN Reason: Pain, severe (8-10) Stop: 09/24/16 16:32 Last Admin: 09/22/16 15:17 Dose: 1 tab Prednisone (Prednisone Tab) 5 mg PO DAILY [facility] Last Admin: 09/22/16 10:47 Dose: 5 mg Raltegravir (Isentress) 400 mg PO BID [facility] Last Admin: 09/22/16 17:38 Dose: 400 mg Ritonavir (Norvir) 100 mg PO BID [facility] Last Admin: 09/22/16 18:00 Dose: 100 mg Tacrolimus (Prograf Cap) 0.5 mg PO QWK [facility] Trimethoprim/Sulfamethoxazole (Bactrim Ds Tab) 1 tab PO MWF [facility] Last Admin: 09/22/16 08:30 Dose: 1 tab - Labs Labs: 09/22/16 06:15 09/23/16 19:01 PT 13.0 SECONDS (9.7-12.2) H 09/21/16 08:50 INR 1.1 09/21/16 08:50 APTT 36 SECONDS (21-34) H 09/21/16 08:50 - Constitutional Appears: Non-toxic, No Acute Distress - Head Exam Head Exam: ATRAUMATIC - ENT Exam ENT Exam: Mucous Membranes Moist - Neck Exam Neck Exam: Normal Inspection - Respiratory Exam Respiratory Exam: Decreased Breath Sounds, NORMAL BREATHING PATTERN - Cardiovascular Exam Cardiovascular Exam: REGULAR RHYTHM - GI/Abdominal Exam GI & Abdominal Exam: Soft, Normal Bowel Sounds. absent: Tenderness - Rectal Exam Rectal Exam: Deferred - Back Exam Back Exam: NORMAL INSPECTION - Neurological Exam Neurological Exam: Alert, Awake - Psychiatric Exam Psychiatric exam: Agitated, Anxious, Flat Affect - Skin Skin Exam: Warm Assessment and Plan (1) Pneumonia Status: Acute (2) Kidney transplant recipient Status: Chronic (3) HIV (human immunodeficiency virus infection) Status: Chronic
[2016-09-24] MEDS: Albuterol-Ipratrop 3 mg / 0.5 (3 ml) UD INH SCH ×4 (01:04→19:22)
[2016-09-24] MEDS: Oxycodone/Acetaminophen 5/325 mg Tab PO PRN ×2 (07:46→18:52)
[2016-09-24] MEDS: Tmp-Smz 800 mg-160 mg DS Tab PO SCH (08:21)
[2016-09-24 09:16] LABS: BASO # 0.1 K/uL (0.0-0.2); BASO % 0.8 % (0.0-2.0); EOS # 0.3 K/uL (0.0-0.7); EOS % 3.2 % (0.0-4.0); HEMATOCRIT 43.1 % (35.0-51.0); LYMPH # 1.1 K/uL (1.0-4.3); LYMPH % 11.4 % (20.0-40.0); MEAN CELL VOLUME 68.9 fL (80.0-94.0); MEAN CORPUSCULAR HEMOGLOBIN 21.6 pg (27.0-31.0); MEAN CORPUSCULAR HGB CONC 31.3 g/dL (33.0-37.0); MEAN PLATELET VOLUME 9.2 fL (7.2-11.7); MONO # 0.7 K/uL (0.0-0.8); MONO % 7.3 % (0.0-10.0); RED CELL DISTRIBUTION WIDTH 14.9 % (11.5-14.5); WHITE BLOOD COUNT 9.3 K/uL (4.8-10.8)
[2016-09-24 10:15] LABS: POTASSIUM 4.2 mmol/L (3.6-5.2)
[2016-09-24 10:17] LABS: ALB/GLOB RATIO 1.4 (1.0-2.1); BILIRUBIN,TOTAL 0.6 mg/dL (0.2-1.3); TOTAL PROTEIN 7.9 g/dL (6.3-8.3)
[2016-09-24 10:18] LABS: CALCIUM 9.7 mg/dl (8.6-10.4)
[2016-09-24] MEDS: Moxifloxacin IV 400mg/250ml NS 400 MG/250 ML BAG IVPB SCH (10:43)
[2016-09-24] MEDS: ETRAVIRINE 200 MG PO SCH ×2 (10:46→17:56)
--- NOTE | 2016-09-24 13:18 | CP.PCM.PN ---
Subjective - Date & Time of Evaluation Date of Evaluation: 09/24/16 Time of Evaluation: 13:15 - Subjective Subjective: Still dyspneic; c/o orthopnea Still with increased wheezing CXR shows CHF Leukocytosis improving Renal function stable Objective - Vital Signs/Intake and Output Vital Signs (last 24 hours): Temp Pulse Resp BP Pulse Ox 98.6 F 91 H 20 121/81 96 09/24/16 08:06 09/24/16 08:06 09/24/16 08:06 09/24/16 08:06 09/24/16 08:06 Intake and Output: 09/24/16 09/24/16 06:59 18:59 Intake Total 550 Output Total 650 Balance -100 - Medications Medications: Current Medications Albuterol/Ipratropium (Duoneb 3 Mg/0.5 Mg (3 Ml) Ud) 3 ml INH RQ6 [facility] Last Admin: 09/24/16 08:24 Dose: 3 ml Darunavir (Prezista) 600 mg PO BID [facility] Last Admin: 09/24/16 12:04 Dose: 600 mg Heparin Sodium (Porcine) (Heparin) 5,000 units SC Q12 [facility] Last Admin: 09/24/16 10:46 Dose: 5,000 units Moxifloxacin HCl (Avelox Iv 400mg/250ml Ns) 400 mg in 250 mls @ 167 mls/hr IVPB Q24H [facility] Last Admin: 09/24/16 10:43 Dose: 167 mls/hr Mycophenolate Mofetil (Cellcept Cap) 750 mg PO BID [facility] Last Admin: 09/24/16 10:44 Dose: 750 mg Intellence 200mg 1 ea PO BID [facility] Last Admin: 09/24/16 10:46 Dose: 1 ea Oxycodone/Acetaminophen (Percocet 5/325 Mg Tab) 1 tab PO Q6H PRN PRN Reason: Pain, severe (8-10) Stop: 09/24/16 16:32 Last Admin: 09/24/16 07:46 Dose: 1 tab Prednisone (Prednisone Tab) 5 mg PO DAILY [facility] Last Admin: 09/24/16 10:45 Dose: 5 mg Raltegravir (Isentress) 400 mg PO BID [facility] Last Admin: 09/24/16 10:44 Dose: 400 mg Ritonavir (Norvir) 100 mg PO BID [facility] Last Admin: 09/24/16 10:46 Dose: 100 mg Tacrolimus (Prograf Cap) 0.5 mg PO QWK [facility] Last Admin: 09/24/16 10:45 Dose: 0.5 mg Trimethoprim/Sulfamethoxazole (Bactrim Ds Tab) 1 tab PO MWF [facility] Last Admin: 09/24/16 08:21 Dose: 1 tab - Labs Labs: 09/24/16 09:01 09/24/16 09:01 PT 13.0 SECONDS (9.7-12.2) H 09/21/16 08:50 INR 1.1 09/21/16 08:50 APTT 36 SECONDS (21-34) H 09/21/16 08:50 - Constitutional Appears: No Acute Distress, Chronically Ill - Head Exam Head Exam: ATRAUMATIC, NORMAL INSPECTION - Eye Exam Eye Exam: EOMI, Normal appearance - Neck Exam Neck Exam: Normal Inspection. absent: Tenderness - Respiratory Exam Respiratory Exam: Rhonchi, Wheezes - Cardiovascular Exam Cardiovascular Exam: REGULAR RHYTHM, +S1 - GI/Abdominal Exam GI & Abdominal Exam: Soft. absent: Tenderness - Extremities Exam Extremities Exam: Normal Inspection. absent: Tenderness - Neurological Exam Neurological Exam: Alert, CN II-XII Intact - Skin Skin Exam: Dry, Warm Assessment and Plan (1) CHF (congestive heart failure) Status: Acute (2) Pneumonia Status: Acute (3) HIV (human immunodeficiency virus infection) Status: Chronic (4) Kidney transplant recipient Status: Chronic - Assessment and Plan (Free Text) Plan: Add lasix check FK level Serial chemistries IV ABs as per ID
--- NOTE | 2016-09-24 19:36 | CP.PCM.PN ---
Subjective - Date & Time of Evaluation Date of Evaluation: 09/24/16 Time of Evaluation: 19:34 - Subjective Subjective: INFECTIOUS DISEASE PROGRESS NOTE INDIA GRAMAJO MD, FACP 3T 351-B 09/24/2016 CHART REVIEWED PT EXAMINED CASES DISCUSSED WITH STAFF CLINICALLY RESPONDING, STILL CONGESTED THROUGH REVIEWED ALL HIS AB, PREFER TO USE TRADITIONAL ROCEPHIN AND ZITHROMAX TO AVOID TOXICITIES WITH QUINALONES. OBSERVE OVER THE WEEKEND Objective - Vital Signs/Intake and Output Vital Signs (last 24 hours): Temp Pulse Resp BP Pulse Ox 98.3 F 103 H 20 134/71 96 09/24/16 15:00 09/24/16 15:00 09/24/16 15:00 09/24/16 15:28 09/24/16 15:00 - Medications Medications: Current Medications Albuterol/Ipratropium (Duoneb 3 Mg/0.5 Mg (3 Ml) Ud) 3 ml INH RQ6 [facility] Last Admin: 09/24/16 19:22 Dose: 3 ml Azithromycin (Zithromax) 500 mg PO DAILY [facility] Darunavir (Prezista) 600 mg PO BID [facility] Last Admin: 09/24/16 18:16 Dose: 600 mg Furosemide (Lasix) 40 mg PO DAILY [facility] Heparin Sodium (Porcine) (Heparin) 5,000 units SC Q12 [facility] Last Admin: 09/24/16 10:46 Dose: 5,000 units Ceftriaxone Sodium (Rocephin Iv 1 Gm Duplex) 50 mls @ 100 mls/hr IVPB DAILY [facility] Mycophenolate Mofetil (Cellcept Cap) 750 mg PO BID [facility] Last Admin: 09/24/16 17:56 Dose: 750 mg Intellence 200mg 1 ea PO BID [facility] Last Admin: 09/24/16 17:56 Dose: 1 ea Oxycodone/Acetaminophen (Percocet 5/325 Mg Tab) 1 tab PO Q6H PRN PRN Reason: Pain, severe (8-10) Stop: 09/27/16 18:27 Last Admin: 09/24/16 18:52 Dose: 1 tab Prednisone (Prednisone Tab) 5 mg PO DAILY [facility] Last Admin: 09/24/16 10:45 Dose: 5 mg Raltegravir (Isentress) 400 mg PO BID [facility] Last Admin: 09/24/16 17:57 Dose: 400 mg Ritonavir (Norvir) 100 mg PO BID [facility] Last Admin: 09/24/16 17:57 Dose: 100 mg Tacrolimus (Prograf Cap) 0.5 mg PO QWK [facility] Last Admin: 09/24/16 10:45 Dose: 0.5 mg Trimethoprim/Sulfamethoxazole (Bactrim Ds Tab) 1 tab PO MWF [facility] Last Admin: 09/24/16 08:21 Dose: 1 tab - Labs Labs: 09/24/16 09:01 09/24/16 09:01 PT 13.0 SECONDS (9.7-12.2) H 09/21/16 08:50 INR 1.1 09/21/16 08:50 APTT 36 SECONDS (21-34) H 09/21/16 08:50 - Constitutional Appears: Non-toxic, No Acute Distress - Head Exam Head Exam: ATRAUMATIC - Eye Exam Eye Exam: Normal appearance - ENT Exam ENT Exam: Mucous Membranes Moist - Respiratory Exam Respiratory Exam: Decreased Breath Sounds, Rhonchi, NORMAL BREATHING PATTERN - Cardiovascular Exam Cardiovascular Exam: REGULAR RHYTHM - GI/Abdominal Exam GI & Abdominal Exam: Soft, Normal Bowel Sounds. absent: Tenderness, Rebound - Rectal Exam Rectal Exam: Deferred - Neurological Exam Neurological Exam: Alert, Awake - Psychiatric Exam Psychiatric exam: Anxious, Flat Affect - Skin Skin Exam: Warm Assessment and Plan (1) Pneumonia Status: Acute (2) Kidney transplant recipient Status: Chronic (3) HIV (human immunodeficiency virus infection) Status: Chronic
[2016-09-25] MEDS: Albuterol-Ipratrop 3 mg / 0.5 (3 ml) UD INH SCH ×4 (02:24→20:44)
[2016-09-25] MEDS: Oxycodone/Acetaminophen 5/325 mg Tab PO PRN (04:49)
[2016-09-25 08:21] LABS: POTASSIUM 4.2 mmol/L (3.6-5.2)
[2016-09-25 08:25] LABS: CALCIUM 9.3 mg/dl (8.6-10.4)
--- NOTE | 2016-09-25 09:54 | CP.PCM.PN ---
Subjective - Date & Time of Evaluation Date of Evaluation: 09/24/16 Time of Evaluation: 09:51 - Subjective Subjective: Patient still feeling congested. Combining of right-sided chest pain, but better than before. Appetite is back. Cough, thick mucus noted. Denies any nausea, no vomiting noted. Intake is okay. Objective - Vital Signs/Intake and Output Vital Signs (last 24 hours): Temp Pulse Resp BP Pulse Ox 98.2 F 91 H 20 129/85 95 09/25/16 07:57 09/25/16 07:57 09/25/16 07:57 09/25/16 07:57 09/25/16 07:57 On examination: HEENT PERRLA, neck supple No thyromegaly was noted and no cervical adenopathy noted Chest bilateral good air entry, no wheezing or rales noted CVS regular heart sound, no murmur Abdomen soft and no organomegaly Extremities no pedal edema, no leg swelling, pedal pulses are good. 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 no functional neurological deficit Intake and Output: 09/25/16 09/25/16 06:59 18:59 Intake Total 860 Output Total 300 Balance 560 - Medications Medications: Current Medications Albuterol/Ipratropium (Duoneb 3 Mg/0.5 Mg (3 Ml) Ud) 3 ml INH RQ6 [facility] Last Admin: 09/25/16 07:20 Dose: 3 ml Azithromycin (Zithromax) 500 mg PO DAILY [facility] Last Admin: 09/24/16 21:28 Dose: 500 mg Darunavir (Prezista) 600 mg PO BID [facility] Last Admin: 09/24/16 18:16 Dose: 600 mg Heparin Sodium (Porcine) (Heparin) 5,000 units SC Q12 [facility] Last Admin: 09/24/16 21:28 Dose: 5,000 units Ceftriaxone Sodium (Rocephin Iv 1 Gm Duplex) 50 mls @ 100 mls/hr IVPB DAILY [facility] Mycophenolate Mofetil (Cellcept Cap) 750 mg PO BID [facility] Last Admin: 09/24/16 17:56 Dose: 750 mg Intellence 200mg 1 ea PO BID [facility] Last Admin: 09/24/16 17:56 Dose: 1 ea Oxycodone/Acetaminophen (Percocet 5/325 Mg Tab) 1 tab PO Q6H PRN PRN Reason: Pain, severe (8-10) Stop: 09/27/16 18:27 Last Admin: 09/25/16 04:49 Dose: 1 tab Prednisone (Prednisone Tab) 5 mg PO DAILY [facility] Last Admin: 09/24/16 10:45 Dose: 5 mg Raltegravir (Isentress) 400 mg PO BID [facility] Last Admin: 09/24/16 17:57 Dose: 400 mg Ritonavir (Norvir) 100 mg PO BID [facility] Last Admin: 09/24/16 17:57 Dose: 100 mg Tacrolimus (Prograf Cap) 0.5 mg PO QWK [facility] Last Admin: 09/24/16 10:45 Dose: 0.5 mg Trimethoprim/Sulfamethoxazole (Bactrim Ds Tab) 1 tab PO MWF [facility] Last Admin: 09/24/16 08:21 Dose: 1 tab - Labs Labs: 09/24/16 09:01 09/25/16 07:20 PT 13.0 SECONDS (9.7-12.2) H 09/21/16 08:50 INR 1.1 09/21/16 08:50 APTT 36 SECONDS (21-34) H 09/21/16 08:50 Assessment and Plan (1) Pneumonia Assessment & Plan: Patient admitted with acute pneumonia. Immunocompromised. On antibiotic. Currently responding. Will continue the current treatment. Monitor the renal function Status: Acute (2) HIV (human immunodeficiency virus infection) Status: Chronic (3) Kidney transplant recipient Status: Chronic
--- NOTE | 2016-09-25 09:55 | CP.PCM.PN ---
Subjective - Date & Time of Evaluation Date of Evaluation: 09/25/16 Time of Evaluation: 09:54 - Subjective Subjective: Patient is currently. feeling much better. Less congestion noted. Cough minimally noted, wheezing, minimal noted. Appetite is back. Denies any chest pain other shortness of breath Objective - Vital Signs/Intake and Output Vital Signs (last 24 hours): Temp Pulse Resp BP Pulse Ox 98.2 F 91 H 20 129/85 95 09/25/16 07:57 09/25/16 07:57 09/25/16 07:57 09/25/16 07:57 09/25/16 07:57 On examination: HEENT PERRLA, neck supple No thyromegaly was noted and no cervical adenopathy noted Chest bilateral good air entry, no wheezing or rales noted CVS regular heart sound, no murmur Abdomen soft and no organomegaly Extremities no pedal edema, no leg swelling, pedal pulses are good. 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 no functional neurological deficit Intake and Output: 09/25/16 09/25/16 06:59 18:59 Intake Total 860 Output Total 300 Balance 560 - Medications Medications: Current Medications Albuterol/Ipratropium (Duoneb 3 Mg/0.5 Mg (3 Ml) Ud) 3 ml INH RQ6 [facility] Last Admin: 09/25/16 07:20 Dose: 3 ml Azithromycin (Zithromax) 500 mg PO DAILY [facility] Last Admin: 09/24/16 21:28 Dose: 500 mg Darunavir (Prezista) 600 mg PO BID [facility] Last Admin: 09/24/16 18:16 Dose: 600 mg Heparin Sodium (Porcine) (Heparin) 5,000 units SC Q12 [facility] Last Admin: 09/24/16 21:28 Dose: 5,000 units Ceftriaxone Sodium (Rocephin Iv 1 Gm Duplex) 50 mls @ 100 mls/hr IVPB DAILY [facility] Mycophenolate Mofetil (Cellcept Cap) 750 mg PO BID [facility] Last Admin: 09/24/16 17:56 Dose: 750 mg Intellence 200mg 1 ea PO BID [facility] Last Admin: 09/24/16 17:56 Dose: 1 ea Oxycodone/Acetaminophen (Percocet 5/325 Mg Tab) 1 tab PO Q6H PRN PRN Reason: Pain, severe (8-10) Stop: 09/27/16 18:27 Last Admin: 09/25/16 04:49 Dose: 1 tab Prednisone (Prednisone Tab) 5 mg PO DAILY [facility] Last Admin: 09/24/16 10:45 Dose: 5 mg Raltegravir (Isentress) 400 mg PO BID [facility] Last Admin: 09/24/16 17:57 Dose: 400 mg Ritonavir (Norvir) 100 mg PO BID [facility] Last Admin: 09/24/16 17:57 Dose: 100 mg Tacrolimus (Prograf Cap) 0.5 mg PO QWK [facility] Last Admin: 09/24/16 10:45 Dose: 0.5 mg Trimethoprim/Sulfamethoxazole (Bactrim Ds Tab) 1 tab PO MWF [facility] Last Admin: 09/24/16 08:21 Dose: 1 tab - Labs Labs: 09/24/16 09:01 09/25/16 07:20 PT 13.0 SECONDS (9.7-12.2) H 09/21/16 08:50 INR 1.1 09/21/16 08:50 APTT 36 SECONDS (21-34) H 09/21/16 08:50 Assessment and Plan (1) Pneumonia Assessment & Plan: patient admitted with acute pneumonia. Currently responding. Status post renal transplant. BUN/creatinine is slightly elevate. Will hold Lasix for now. Continue the antibiotic Status: Acute (2) HIV (human immunodeficiency virus infection) Status: Chronic (3) Kidney transplant recipient Status: Chronic
[2016-09-25] MEDS: ETRAVIRINE 200 MG PO SCH ×2 (10:27→18:33)
[2016-09-25] MEDS: cefTRIAXone IV 1 gm in Dextros 50 ML IVPB SCH (10:29)
--- NOTE | 2016-09-25 10:49 | CP.PCM.PN ---
Subjective - Date & Time of Evaluation Date of Evaluation: 09/25/16 Time of Evaluation: 11:00 - Subjective Subjective: afebrile bun up to 27,creatinine up to 2 placed on lasix up in chair comfortable feels better No headache less sob cough no hemoptysis rt sided pleuritic chest pain better no abd pain naseau vomiting diarrhea no dysuria or hematuria no chills or fever Objective - Vital Signs/Intake and Output Vital Signs (last 24 hours): Temp Pulse Resp BP Pulse Ox 98.2 F 91 H 20 129/85 95 09/25/16 07:57 09/25/16 07:57 09/25/16 07:57 09/25/16 07:57 09/25/16 07:57 Intake and Output: 09/25/16 09/25/16 06:59 18:59 Intake Total 860 Output Total 300 Balance 560 - Medications Medications: Current Medications Albuterol/Ipratropium (Duoneb 3 Mg/0.5 Mg (3 Ml) Ud) 3 ml INH RQ6 [facility] Last Admin: 09/25/16 07:20 Dose: 3 ml Azithromycin (Zithromax) 500 mg PO DAILY [facility] Last Admin: 09/25/16 10:28 Dose: 500 mg Darunavir (Prezista) 600 mg PO BID [facility] Last Admin: 09/25/16 09:54 Dose: 600 mg Heparin Sodium (Porcine) (Heparin) 5,000 units SC Q12 [facility] Last Admin: 09/25/16 10:03 Dose: 5,000 units Ceftriaxone Sodium (Rocephin Iv 1 Gm Duplex) 50 mls @ 100 mls/hr IVPB DAILY [facility] Last Admin: 09/25/16 10:29 Dose: 100 mls/hr Mycophenolate Mofetil (Cellcept Cap) 750 mg PO BID [facility] Last Admin: 09/25/16 09:53 Dose: 750 mg Intellence 200mg 1 ea PO BID [facility] Last Admin: 09/25/16 10:27 Dose: 1 ea Oxycodone/Acetaminophen (Percocet 5/325 Mg Tab) 1 tab PO Q6H PRN PRN Reason: Pain, severe (8-10) Stop: 09/27/16 18:27 Last Admin: 09/25/16 04:49 Dose: 1 tab Prednisone (Prednisone Tab) 5 mg PO DAILY [facility] Last Admin: 09/25/16 09:55 Dose: 5 mg Raltegravir (Isentress) 400 mg PO BID [facility] Last Admin: 09/25/16 09:54 Dose: 400 mg Ritonavir (Norvir) 100 mg PO BID [facility] Last Admin: 09/24/16 17:57 Dose: 100 mg Tacrolimus (Prograf Cap) 0.5 mg PO QWK [facility] Last Admin: 09/24/16 10:45 Dose: 0.5 mg Trimethoprim/Sulfamethoxazole (Bactrim Ds Tab) 1 tab PO MWF [facility] Last Admin: 09/24/16 08:21 Dose: 1 tab - Labs Labs: 09/24/16 09:01 09/25/16 07:20 PT 13.0 SECONDS (9.7-12.2) H 09/21/16 08:50 INR 1.1 09/21/16 08:50 APTT 36 SECONDS (21-34) H 09/21/16 08:50 - Constitutional Appears: No Acute Distress - ENT Exam ENT Exam: Mucous Membranes Moist - Respiratory Exam Respiratory Exam: Clear to Ausculation Bilateral - Cardiovascular Exam Cardiovascular Exam: REGULAR RHYTHM. absent: JVD - GI/Abdominal Exam GI & Abdominal Exam: Soft. absent: Tenderness - Rectal Exam Additional comments: obese graft rlq ill defined non tender - Back Exam Back Exam: absent: CVA tenderness (L), CVA tenderness (R) Additional comments: npo pre sacral edema - Neurological Exam Neurological Exam: Alert, Awake - Psychiatric Exam Psychiatric exam: Normal Mood - Skin Skin Exam: Dry, Warm Assessment and Plan (1) Pneumonia Status: Acute (2) HIV (human immunodeficiency virus infection) Status: Chronic (3) Kidney transplant recipient Status: Chronic - Assessment and Plan (Free Text) Plan: maintain present immunosuppression pending tacrolimus level start po lasix today follow chems closely
[2016-09-26] MEDS: Albuterol-Ipratrop 3 mg / 0.5 (3 ml) UD INH SCH ×4 (03:11→19:57)
[2016-09-26] MEDS: Oxycodone/Acetaminophen 5/325 mg Tab PO PRN ×2 (06:36→20:25)
--- NOTE | 2016-09-26 07:40 | CP.PCM.PN ---
Subjective - Date & Time of Evaluation Date of Evaluation: 09/26/16 Time of Evaluation: 07:38 - Subjective Subjective: Patient is still having some wheezing. Right sided minimal chest discomfort noted. Cough noted, but mucus production is much less. No fever. Poor appetite improving. Eating better than before. No sweating. No nausea vomiting. Objective - Vital Signs/Intake and Output Vital Signs (last 24 hours): Temp Pulse Resp BP Pulse Ox 97.8 F 88 20 110/77 97 09/26/16 00:00 09/26/16 00:00 09/26/16 00:00 09/26/16 00:00 09/26/16 00:00 Intake and Output: 09/26/16 09/26/16 06:59 18:59 Intake Total 1040 Balance 1040 - Medications Medications: Current Medications Albuterol/Ipratropium (Duoneb 3 Mg/0.5 Mg (3 Ml) Ud) 3 ml INH RQ6 [facility] Last Admin: 09/26/16 03:11 Dose: Not Given Azithromycin (Zithromax) 500 mg PO DAILY [facility] Last Admin: 09/25/16 10:28 Dose: 500 mg Darunavir (Prezista) 600 mg PO BID [facility] Last Admin: 09/25/16 18:34 Dose: 600 mg Heparin Sodium (Porcine) (Heparin) 5,000 units SC Q12 [facility] Last Admin: 09/25/16 21:53 Dose: 5,000 units Ceftriaxone Sodium (Rocephin Iv 1 Gm Duplex) 50 mls @ 100 mls/hr IVPB DAILY [facility] Last Admin: 09/25/16 10:29 Dose: 100 mls/hr Mycophenolate Mofetil (Cellcept Cap) 750 mg PO BID [facility] Last Admin: 09/25/16 18:32 Dose: 750 mg Intellence 200mg 1 ea PO BID [facility] Last Admin: 09/25/16 18:33 Dose: 1 ea Oxycodone/Acetaminophen (Percocet 5/325 Mg Tab) 1 tab PO Q6H PRN PRN Reason: Pain, severe (8-10) Stop: 09/27/16 18:27 Last Admin: 09/26/16 06:36 Dose: 1 tab Prednisone (Prednisone Tab) 5 mg PO DAILY [facility] Last Admin: 09/25/16 09:55 Dose: 5 mg Raltegravir (Isentress) 400 mg PO BID [facility] Last Admin: 09/25/16 18:32 Dose: 400 mg Ritonavir (Norvir) 100 mg PO BID [facility] Last Admin: 09/25/16 18:33 Dose: 100 mg Tacrolimus (Prograf Cap) 0.5 mg PO QWK [facility] Last Admin: 09/24/16 10:45 Dose: 0.5 mg Trimethoprim/Sulfamethoxazole (Bactrim Ds Tab) 1 tab PO MWF [facility] Last Admin: 09/24/16 08:21 Dose: 1 tab Vital signs reviewed No neck vein distention noted Chest good air entry bilaterally, no wheezing or rales noted CVS regular heart sound, no murmur noted Abdomen soft, nontender. Extremities no pedal edema [employer] alert awake oriented 3, no functional neurological deficit - Labs Labs: 09/24/16 09:01 09/25/16 07:20 PT 13.0 SECONDS (9.7-12.2) H 09/21/16 08:50 INR 1.1 09/21/16 08:50 APTT 36 SECONDS (21-34) H 09/21/16 08:50 Assessment and Plan (1) Pneumonia Assessment & Plan: Patient with a community-acquired pneumonia, on IV antibiotic. Currently improving. We'll repeat the chest x-ray in the morning. History of renal transplant, on immunosuppressive treatment. History of HIV on treatment Status: Acute (2) HIV (human immunodeficiency virus infection) Status: Chronic (3) Kidney transplant recipient Status: Chronic
[2016-09-26 08:16] LABS: POTASSIUM 4.1 mmol/L (3.6-5.2)
[2016-09-26 08:19] VITALS: O2SAT 94
[2016-09-26 08:20] LABS: CALCIUM 9.5 mg/dl (8.6-10.4)
[2016-09-26] MEDS: ETRAVIRINE 200 MG PO SCH ×2 (09:49→18:12)
[2016-09-26] MEDS: cefTRIAXone IV 1 gm in Dextros 50 ML IVPB SCH (09:51)
--- NOTE | 2016-09-26 18:16 | CARD ---
APPROVED REPORT EKG Measurement Heart [id number] [id number] <Conclusion> Sinus tachycardia Possible Left atrial enlargement Borderline ECG
--- NOTE | 2016-09-27 00:07 | CP.PCM.PN ---
Subjective - Date & Time of Evaluation Date of Evaluation: 09/26/16 Time of Evaluation: 00:29 - Subjective Subjective: INFECTIOUS DISEASE PROGRESS NOTE 3T 351-B INDIA GRAMAJO MD, FACP 09/26/2016 CHART REVIEWD CASE DISCUSSED EXAM NOTED STILL WITH SOME MINOR WHEEZING BUT BETTER CLINCIALLY RESPONDING THAN FROM ADMISSION BUT SLOWLY SECONDARY TO TWO ISSUES OF IMMUNE DYSFUNCTION: 1) HIV 2)TRANSPLANT MEDICICATION/RENAL REPEAT LABS IF STABLE CONSIDER HOME SOON. Objective - Vital Signs/Intake and Output Vital Signs (last 24 hours): Temp Pulse Resp BP Pulse Ox 98.4 F 101 H 20 114/74 94 L 09/26/16 15:00 09/26/16 15:00 09/26/16 15:00 09/26/16 15:00 09/26/16 15:00 Intake and Output: 09/26/16 09/27/16 18:59 06:59 Intake Total 680 Balance 680 - Medications Medications: Current Medications Azithromycin (Zithromax) 500 mg PO DAILY [facility] Last Admin: 09/26/16 09:50 Dose: 500 mg Darunavir (Prezista) 600 mg PO BID [facility] Last Admin: 09/26/16 18:12 Dose: 600 mg Heparin Sodium (Porcine) (Heparin) 5,000 units SC Q12 [facility] Last Admin: 09/26/16 21:08 Dose: 5,000 units Ceftriaxone Sodium (Rocephin Iv 1 Gm Duplex) 50 mls @ 100 mls/hr IVPB DAILY [facility] Last Admin: 09/26/16 09:51 Dose: 100 mls/hr Mycophenolate Mofetil (Cellcept Cap) 750 mg PO BID [facility] Last Admin: 09/26/16 18:12 Dose: 750 mg Intellence 200mg 1 ea PO BID [facility] Last Admin: 09/26/16 18:12 Dose: 1 ea Oxycodone/Acetaminophen (Percocet 5/325 Mg Tab) 1 tab PO Q6H PRN PRN Reason: Pain, severe (8-10) Stop: 09/27/16 18:27 Last Admin: 09/26/16 20:25 Dose: 1 tab Prednisone (Prednisone Tab) 5 mg PO DAILY [facility] Last Admin: 09/26/16 09:50 Dose: 5 mg Raltegravir (Isentress) 400 mg PO BID [facility] Last Admin: 09/26/16 18:12 Dose: 400 mg Ritonavir (Norvir) 100 mg PO BID [facility] Last Admin: 09/26/16 18:12 Dose: 100 mg Tacrolimus (Prograf Cap) 0.5 mg PO QWK [facility] Last Admin: 09/24/16 10:45 Dose: 0.5 mg Trimethoprim/Sulfamethoxazole (Bactrim Ds Tab) 1 tab PO MWF [facility] Last Admin: 09/24/16 08:21 Dose: 1 tab - Labs Labs: 09/24/16 09:01 09/26/16 07:45 PT 13.0 SECONDS (9.7-12.2) H 09/21/16 08:50 INR 1.1 09/21/16 08:50 APTT 36 SECONDS (21-34) H 09/21/16 08:50 - Constitutional Appears: Non-toxic, No Acute Distress, Chronically Ill - Head Exam Head Exam: ATRAUMATIC - Eye Exam Eye Exam: Normal appearance - ENT Exam ENT Exam: Mucous Membranes Moist - Neck Exam Neck Exam: Normal Inspection - Respiratory Exam Respiratory Exam: NORMAL BREATHING PATTERN - Cardiovascular Exam Cardiovascular Exam: REGULAR RHYTHM - GI/Abdominal Exam GI & Abdominal Exam: Soft, Normal Bowel Sounds. absent: Tenderness - Rectal Exam Rectal Exam: Deferred - Extremities Exam Extremities Exam: Normal Capillary Refill - Neurological Exam Neurological Exam: Alert, Awake - Psychiatric Exam Psychiatric exam: Flat Affect - Skin Skin Exam: Dry, Warm Assessment and Plan (1) Pneumonia Status: Acute (2) Kidney transplant recipient Status: Chronic (3) HIV (human immunodeficiency virus infection) Status: Chronic (4) Affective disorder Status: Chronic
[2016-09-27] MEDS: Oxycodone/Acetaminophen 5/325 mg Tab PO PRN ×2 (07:29→14:55)
[2016-09-27 07:36] LABS: BASO # 0.1 K/uL (0.0-0.2); BASO % 0.6 % (0.0-2.0); EOS # 0.3 K/uL (0.0-0.7); EOS % 3.8 % (0.0-4.0); HEMATOCRIT 42.4 % (35.0-51.0); LYMPH # 1.1 K/uL (1.0-4.3); LYMPH % 13.7 % (20.0-40.0); MEAN CELL VOLUME 69.6 fL (80.0-94.0); MEAN CORPUSCULAR HEMOGLOBIN 21.6 pg (27.0-31.0); MEAN CORPUSCULAR HGB CONC 31.1 g/dL (33.0-37.0); MEAN PLATELET VOLUME 9.5 fL (7.2-11.7); MONO # 0.9 K/uL (0.0-0.8); MONO % 10.3 % (0.0-10.0); NRBC % 0.1 % (0.0-2.0); RED CELL DISTRIBUTION WIDTH 14.8 % (11.5-14.5); WHITE BLOOD COUNT 8.4 K/uL (4.8-10.8)
[2016-09-27 07:48] LABS: POTASSIUM 4.5 mmol/L (3.6-5.2)
[2016-09-27 07:50] LABS: ALB/GLOB RATIO 1.2 (1.0-2.1); BILIRUBIN,TOTAL 0.6 mg/dL (0.2-1.3); TOTAL PROTEIN 7.2 g/dL (6.3-8.3)
[2016-09-27 07:51] LABS: CALCIUM 9.3 mg/dl (8.6-10.4)
[2016-09-27 07:57] VITALS: BP 123/90; PULSE 87; TEMP 98
[2016-09-27] MEDS: ETRAVIRINE 200 MG PO SCH (10:25)
[2016-09-27] MEDS: Tmp-Smz 800 mg-160 mg DS Tab PO SCH (10:25)
[2016-09-27] MEDS: cefTRIAXone IV 1 gm in Dextros 50 ML IVPB SCH (10:29)
--- NOTE | 2016-09-27 11:15 | CP.PCM.PN ---
Subjective - Date & Time of Evaluation Date of Evaluation: 09/27/16 Time of Evaluation: 11:12 - Subjective Subjective: Feels better; no cough, not SOB Creat down to 1.7 Would continue small dose oral lasix as outpt Will follow up at outpatient transplant clinic- can obtain tacro levels there. Objective - Vital Signs/Intake and Output Vital Signs (last 24 hours): Temp Pulse Resp BP Pulse Ox 98 F 87 20 123/90 94 L 09/27/16 07:54 09/27/16 07:54 09/27/16 07:54 09/27/16 07:54 09/27/16 07:54 Intake and Output: 09/27/16 09/27/16 06:59 18:59 Intake Total 680 560 Balance 680 560 - Medications Medications: Current Medications Darunavir (Prezista) 600 mg PO BID [facility] Last Admin: 09/27/16 10:28 Dose: 600 mg Heparin Sodium (Porcine) (Heparin) 5,000 units SC Q12 [facility] Last Admin: 09/27/16 10:27 Dose: 5,000 units Ceftriaxone Sodium (Rocephin Iv 1 Gm Duplex) 50 mls @ 100 mls/hr IVPB DAILY [facility] Last Admin: 09/27/16 10:29 Dose: 100 mls/hr Mycophenolate Mofetil (Cellcept Cap) 750 mg PO BID [facility] Last Admin: 09/27/16 10:25 Dose: 750 mg Intellence 200mg 1 ea PO BID [facility] Last Admin: 09/27/16 10:25 Dose: 1 ea Oxycodone/Acetaminophen (Percocet 5/325 Mg Tab) 1 tab PO Q6H PRN PRN Reason: Pain, severe (8-10) Stop: 09/27/16 18:27 Last Admin: 09/27/16 07:29 Dose: 1 tab Prednisone (Prednisone Tab) 5 mg PO DAILY [facility] Last Admin: 09/27/16 10:26 Dose: 5 mg Raltegravir (Isentress) 400 mg PO BID [facility] Last Admin: 09/27/16 10:25 Dose: 400 mg Ritonavir (Norvir) 100 mg PO BID [facility] Last Admin: 09/27/16 10:28 Dose: 100 mg Tacrolimus (Prograf Cap) 0.5 mg PO QWK [facility] Last Admin: 09/24/16 10:45 Dose: 0.5 mg Trimethoprim/Sulfamethoxazole (Bactrim Ds Tab) 1 tab PO MWF [facility] Last Admin: 09/27/16 10:25 Dose: 1 tab - Labs Labs: 09/27/16 07:22 09/27/16 07:22 PT 13.0 SECONDS (9.7-12.2) H 09/21/16 08:50 INR 1.1 09/21/16 08:50 APTT 36 SECONDS (21-34) H 09/21/16 08:50 - Constitutional Appears: No Acute Distress, Chronically Ill - Head Exam Head Exam: ATRAUMATIC, NORMAL INSPECTION - Eye Exam Eye Exam: EOMI, Normal appearance - Neck Exam Neck Exam: Normal Inspection. absent: Tenderness - Respiratory Exam Respiratory Exam: Clear to Ausculation Bilateral, NORMAL BREATHING PATTERN - Cardiovascular Exam Cardiovascular Exam: REGULAR RHYTHM, +S1 - GI/Abdominal Exam GI & Abdominal Exam: Soft. absent: Tenderness - Extremities Exam Extremities Exam: Normal Inspection. absent: Pedal Edema - Neurological Exam Neurological Exam: Awake, CN II-XII Intact - Skin Skin Exam: Dry, Warm Assessment and Plan (1) CHF (congestive heart failure) Status: Acute (2) Pneumonia Status: Acute (3) HIV (human immunodeficiency virus infection) Status: Chronic (4) Kidney transplant recipient Status: Chronic - Assessment and Plan (Free Text) Plan: Same meds f/u FK levels lasix 20 mg daily
--- NOTE | 2016-09-27 12:01 | RAD ---
Chest x-ray two views History: Pneumonia. Comparison: None available. Findings: Patchy airspace opacity in the right midlung zone extending into the right hilar region which may represent underlying infiltrate. Clinical correlation. Diffuse increased interstitial lung markings. Minimal apical pleural thickening. Tortuous aorta. Mild cardiomegaly. Degenerative changes in the spine. Impression: Patchy airspace opacity in the right midlung zone extending into the right hilar region which may represent underlying infiltrate. Clinical correlation.
--- NOTE | 2016-09-27 16:58 | CP.PCM.PN ---
Subjective - Date & Time of Evaluation Date of Evaluation: 09/27/16 Time of Evaluation: 13:00 - Subjective Subjective: INFECTIOUS DISEASE PROGRESS NOTE INDIA GRAMAJO MD, FACP 3T 351-B 09/27/2016 CHART REVIEWED CASE DISCUSSED AT LENGTH WITH DR MUNSON EXAM NOTED CLINICALLY SLOW BUT STEADY RESPONSE TO MEDICAL COMANAGEMENT LUNGS IMPROVED WELL CREAT. WILL NEED TO RETURN TO PREVIOUS ANTIVIRAL AND ANTI-REJECTION TRANSPLANT MEDICATIONS. TO BE FOLLOWED BY RENAL GROUP. CD4 AROUND 300, CHECK VL. Objective - Vital Signs/Intake and Output Vital Signs (last 24 hours): Temp Pulse Resp BP Pulse Ox 98 F 87 20 123/90 94 L 09/27/16 07:54 09/27/16 07:54 09/27/16 07:54 09/27/16 07:54 09/27/16 07:54 Intake and Output: 09/27/16 09/27/16 06:59 18:59 Intake Total 680 1160 Balance 680 1160 - Medications Medications: Current Medications Darunavir (Prezista) 600 mg PO BID [facility] Last Admin: 09/27/16 10:28 Dose: 600 mg Furosemide (Lasix) 20 mg PO DAILY [facility] Heparin Sodium (Porcine) (Heparin) 5,000 units SC Q12 [facility] Last Admin: 09/27/16 10:27 Dose: 5,000 units Ceftriaxone Sodium (Rocephin Iv 1 Gm Duplex) 50 mls @ 100 mls/hr IVPB DAILY [facility] Last Admin: 09/27/16 10:29 Dose: 100 mls/hr Mycophenolate Mofetil (Cellcept Cap) 750 mg PO BID [facility] Last Admin: 09/27/16 10:25 Dose: 750 mg Intellence 200mg 1 ea PO BID [facility] Last Admin: 09/27/16 10:25 Dose: 1 ea Oxycodone/Acetaminophen (Percocet 5/325 Mg Tab) 1 tab PO Q6H PRN PRN Reason: Pain, severe (8-10) Stop: 09/27/16 18:27 Last Admin: 09/27/16 14:55 Dose: 1 tab Prednisone (Prednisone Tab) 5 mg PO DAILY [facility] Last Admin: 09/27/16 10:26 Dose: 5 mg Raltegravir (Isentress) 400 mg PO BID [facility] Last Admin: 09/27/16 10:25 Dose: 400 mg Ritonavir (Norvir) 100 mg PO BID [facility] Last Admin: 09/27/16 10:28 Dose: 100 mg Tacrolimus (Prograf Cap) 0.5 mg PO QWK [facility] Last Admin: 09/24/16 10:45 Dose: 0.5 mg Trimethoprim/Sulfamethoxazole (Bactrim Ds Tab) 1 tab PO MWF [facility] Last Admin: 09/27/16 10:25 Dose: 1 tab - Labs Labs: 09/27/16 07:22 09/27/16 07:22 PT 13.0 SECONDS (9.7-12.2) H 09/21/16 08:50 INR 1.1 09/21/16 08:50 APTT 36 SECONDS (21-34) H 09/21/16 08:50 - Constitutional Appears: Non-toxic, No Acute Distress, Chronically Ill - Eye Exam Eye Exam: Normal appearance - ENT Exam ENT Exam: Mucous Membranes Dry, Mucous Membranes Moist - Neck Exam Neck Exam: Normal Inspection - Respiratory Exam Respiratory Exam: Decreased Breath Sounds, NORMAL BREATHING PATTERN - Cardiovascular Exam Cardiovascular Exam: REGULAR RHYTHM - GI/Abdominal Exam GI & Abdominal Exam: Soft - Rectal Exam Rectal Exam: Deferred - Back Exam Back Exam: NORMAL INSPECTION - Neurological Exam Neurological Exam: Alert - Psychiatric Exam Psychiatric exam: Flat Affect, Normal Affect Assessment and Plan (1) Pneumonia Status: Acute (2) Kidney transplant recipient Status: Chronic (3) HIV (human immunodeficiency virus infection) Status: Chronic (4) Affective disorder Status: Chronic
--- NOTE | 2016-09-27 17:57 | PCM.HF ---
Heart Failure Core Measure - Heart Failure Left Ventricular Function to be assessed after discharge: Yes MARY GRACE Inhibitor Prescribed: No Contraindication/Reason for not providing: RENAL DYSFUNCTION- KIDNEY TX PT Beta-Bethany Prescribed: None Contraindication/Reason for not providing: NOT RX BY MD Angiotensin II Receptor Bethany Prescribed: No Contraindication/Reason for not providing: RENAL DYSFUNCTION- KIDNEY TX PT AnticoagulationTherapy for Atrial Fibrillation/Atrialflutter: No Contraindication/Reason for not providing: NO AFIB Aldosterone Antagonist Prescribed: No Contraindication/Reason for not providing: RENAL DYSFUNCTION Hydralazine Nitrate Prescribed: No Contraindication/Reason for not providing: NOT RX BY MD AT PRESENT Implantable Cardioverter Defibrillator Therapy: No Contraindication/Reason for not providing: WILL BE EVALUATED OUPT Cardiac Resynchronization Therapy Prescribed: No Contraindication/Reason for not providing: WILL BE EVALUATED OUTPT - Follow up Will be discharged to: Home Follow Up Date (must be within 7 days from discharge): 09/29/16 Follow Up Time: 09:00
--- NOTE | 2016-09-27 19:10 | CP.PCM.DIS ---
Provider - Provider Date of Admission: 09/21/16 11:12 Attending physician: Manjeet Hobbs MD Time Spent in preparation of Discharge (in minutes): 45 Diagnosis - Discharge Diagnosis (1) Pneumonia Status: Acute Priority: High (2) HIV (human immunodeficiency virus infection) Status: Chronic Priority: Low (3) Kidney transplant recipient Status: Chronic Priority: Medium Hospital Course - Lab Results Lab Results: Most Recent Lab Values WBC 8.4 K/uL (4.8-10.8) 09/27/16 07:22 RBC 6.09 Mil/uL (4.40-5.90) H 09/27/16 07:22 Hgb 13.2 g/dL (12.0-18.0) 09/27/16 07:22 Hct 42.4 % (35.0-51.0) 09/27/16 07:22 MCV 69.6 fL (80.0-94.0) L 09/27/16 07: MCH 21.6 pg (27.0-31.0) L 09/27/16 07: MCHC 31.1 g/dL (33.0-37.0) L 09/27/16 07:22 RDW 14.8 % (11.5-14.5) H 09/27/16 07:22 Plt Count 215 K/uL (130-400) 09/27/16 07:22 MPV 9.5 fL (7.2-11.7) 09/27/16 07:22 Neut % (Auto) 71.6 % (50.0-75.0) 09/27/16 07: Lymph % (Auto) 13.7 % (20.0-40.0) L 09/27/16 07:22 Cedar % (Auto) 10.3 % (0.0-10.0) H 09/27/16 07:22 Eos % (Auto) 3.8 % (0.0-4.0) 09/27/16 07:22 Baso % (Auto) 0.6 % (0.0-2.0) 09/27/16 07:22 Neut # 6.0 K/uL (1.8-7.0) 09/27/16 07: Lymph # 1.1 K/uL (1.0-4.3) 09/27/16 07:22 Cedar # 0.9 K/uL (0.0-0.8) H 09/27/16 07:22 Eos # 0.3 K/uL (0.0-0.7) 09/27/16 07:22 Baso # 0.1 K/uL (0.0-0.2) 09/27/16 07:22 Neutrophils % (Manual) 85 % (50-75) H 09/21/16 08:50 Lymphocytes % (Manual) 6 % (20-40) L 09/21/16 08:50 Monocytes % (Manual) 9 % (0-10) 09/21/16 08:50 Platelet Estimate Normal (NORMAL) 09/21/16 08:50 Large Platelets Present 09/21/16 08:50 RBC Morphology Normal 09/21/16 08:50 PT 13.0 SECONDS (9.7-12.2) H 09/21/16 08:50 INR 1.1 09/21/16 08:50 APTT 36 SECONDS (21-34) H 09/21/16 08:50 Sodium 140 mmol/L (132-148) 09/27/16 07:22 Potassium 4.5 mmol/L (3.6-5.2) 09/27/16 07:22 Chloride 102 mmol/L (98-107) 09/27/16 07:22 Carbon Dioxide 26 mmol/L (22-30) 09/27/16 07:22 Anion Gap 16 (10-20) 09/27/16 07:22 BUN 27 mg/dL (9-20) H 09/27/16 07:22 Creatinine 1.7 MG/DL (0.8-1.5) H 09/27/16 07:22 Est GFR ( Amer) 51 09/27/16 07:22 Est GFR (Non-Af Amer) 42 09/27/16 07:22 Random Glucose 93 mg/dL (75-110) 09/27/16 07:22 Calcium 9.3 mg/dl (8.6-10.4) 09/27/16 07:22 Phosphorus 3.3 mg/dL (2.5-4.5) 09/23/16 19:01 Magnesium 1.5 mg/dL (1.6-2.3) L 09/23/16 19:01 Total Bilirubin 0.6 mg/dL (0.2-1.3) 09/27/16 07:22 AST 15 U/L (17-59) L D 09/27/16 07:22 ALT 17 U/L (21-72) L 09/27/16 07:22 Alkaline Phosphatase 77 U/L (38-126) 09/27/16 07:22 Troponin I < 0.0120 ng/mL (0.00-0.120) 09/21/16 08:50 NT-Pro-B Natriuret Pep 328 pg/mL (0-900) 09/21/16 08:50 Total Protein 7.2 g/dL (6.3-8.3) 09/27/16 07:22 Albumin 3.9 g/dL (3.5-5.0) 09/27/16 07:22 Globulin 3.3 gm/dL (2.2-3.9) 09/27/16 07:22 Albumin/Globulin Ratio 1.2 (1.0-2.1) 09/27/16 07:22 Urine Color Yellow (YELLOW) 09/21/16 11:09 Urine Clarity Clear (Clear) 09/21/16 11:09 Urine pH 5.0 (5.0-8.0) 09/21/16 11:09 Ur Specific [place] 1.020 (1.003-1.030) 09/21/16 11:09 Urine Protein 2+ mg/dL (NEGATIVE) H 09/21/16 11:09 Urine Glucose (UA) Normal mg/dL (Normal) 09/21/16 11:09 Urine Ketones Negative mg/dL (NEGATIVE) 09/21/16 11:09 Urine Blood 1+ (NEGATIVE) H 09/21/16 11:09 Urine Nitrate Negative (NEGATIVE) 09/21/16 11:09 Urine Bilirubin Negative (NEGATIVE) 09/21/16 11:09 Urine Urobilinogen 2.0 mg/dL (0.2-1.0) 09/21/16 11:09 Ur Leukocyte Esterase Neg Sunny/uL (Negative) 09/21/16 11:09 Urine WBC (Auto) 2 /hpf (0-5) 09/21/16 11:09 Urine RBC (Auto) 1 /hpf (0-3) 09/21/16 11:09 Ur Squamous Epith Cells < 1 /hpf (0-5) 09/21/16 11:09 Absolute Lymphs (Flow) 1129 Cells/mcL (850-3900) 09/24/16 09:01 % CD4 Cells 26 Percent (30-61) L 09/24/16 09:01 Absolute CD4 Count 292 Cells/mcL (490-1740) L 09/24/16 09:01 T-Help/Suppress Ratio 0.96 Ratio (0.86-5.00) 09/24/16 09:01 % CD8 Cells 27 Percent (12-42) 09/24/16 09:01 Absolute CD8 Count 306 Cells/mcL (180-1170) 09/24/16 09:01 - Hospital Course Hospital Course: Chief complaint: Cough chest pain History present illness: 55-year-old male with history of HIV, renal failure, status post a kidney transplant came to the emergency room with the complaining of 3 days history of cough, right-sided chest pain, and not feeling well. Patient last week went to see the metal sorter. Today he supposed to be seeing the infectious disease specialist, but his condition got worse he came into the emergency room. In the emergency room he was having increasing cough, and mucus production, which was white in color, he was also not feeling well, chills, and associated with right-sided pleuritic chest pain. The pain was significantly worse, took Percocet for the pain. Taking deep breath also causes increasing pain on the right side. He did not have any nausea, no vomiting noted. But poor appetite noted. Patient is making urine at this time, he denies any headache, no dizziness noted. No recent travel, but no sick exposure Past medical history: HIV disease, kidney failure, status post transplant Surgical history: Renal transplant Allergy: No known drug allergy Personal history: Patient is a nonsmoker, he denies any alcohol. Patient lives with the family members. No sick exposure recently Family history significant for kidney disease Review of system: Complaining of no headache, complaining of cough, with the minimal mucus production, right-sided chest discomfort, associate with the chest pain, pleuritic in nature. No nausea vomiting noted. Denies any diarrhea, no rash. Leg swelling negative On examination: Vital signs reviewed Oxygen saturation is normal chest good air entry bilaterally, expiratory wheezing and rales noted bilaterally regular heart sound, nontender abdomen. Extent is no pedal edema Chest x-ray showing evidence of right lower lung pneumonia. Labs elevated WBC noted. Mild elevation of the creatinine noted Assessment/condition: 55-year-old male with history of HIV disease, kidney transplant on medications. Currently patient is on anti-retroviral, as well as immunosuppressive treatment. Being maintained with medications. History of undetectable viral load. Patient now admitted with a possible acute community-acquired pneumonia on the right lower lung. We'll get a CT scan of the chest. Currently on Avelox. Infectious disease evaluation. Bronchial dilators. Kidney function monitoring. We'll follow the patient Patient started on IV antibiotic. Patient started slowly improving. Patient oxygen saturation is also got better. Patient initially started on Avelox, and later converted to ceftriaxone and Zithromax. Currently stable. Today I examined the patient, patient is able to family. His oxygen saturation is 94% on room air. Heart rate is 90. Clinical stable. He will be discharged home. Final diagnosis, tach or pneumonia. Patient is a renal transplant. Patient has a hiv receiving treatment. On immunosuppressive treatment. Patient will follow up with the infectious disease specialist, he will continue the by mouth antibiotic and will follow the patient Discharge Exam - Head Exam Head Exam: ATRAUMATIC, NORMAL INSPECTION Discharge Plan - Discharge Medications Prescriptions: Doxycycline Hyclate [Vibramycin] 100 mg IV BID #14 vial Doxycycline Oral Susp [Vibramycin Oral Susp] 100 mg PO BID #14 ml - Follow Up Plan Condition: STABLE Disposition: HOME/ ROUTINE Instructions: Doxycycline (By mouth), Heart Failure (DC), Community Acquired Pneumonia (DC) Additional Instructions: D/C home today and F/u in office with Dr. Flowers Referrals: Paulette Flowers MD [Staff Provider] - Manjeet Hobbs MD [Staff Provider] -
== END 2016-09-27 16:40 | disposition home or self-care (01) | DRG 975 ==
LOC: C.ER 07:48 → C.9E 11:12 → C.3T 12:04
PROVIDERS: ADMIT Internal Medicine; ATTEND Internal Medicine
DX: B20 Human immunodeficiency virus [HIV] disease (principal); J18.9 Pneumonia, unspecified organism; Z94.0 Kidney transplant status; N18.3 Chronic kidney disease, stage 3 (moderate); I13.0 Hypertensive heart and chronic kidney disease with heart failure and stage 1 through stage 4 chronic kidney disease, or unspecified chronic kidney disease; I50.9 Heart failure, unspecified; N05.9 Unspecified nephritic syndrome with unspecified morphologic changes; E78.5 Hyperlipidemia, unspecified; J44.9 Chronic obstructive pulmonary disease, unspecified; F39 Unspecified mood [affective] disorder

== ENCOUNTER 2016-11-25 09:24 | Emergency (ER) | payer MEDICARE ==
[2016-11-25 09:39] VITALS: BMI 27.8
[2016-11-25] MEDS ORDERED: Lidocaine 1% Inj (20ml) ONE (09:39)
[2016-11-25 09:40] VITALS: RESP 20
[2016-11-25] MEDS ORDERED: Bacitracin 500 Units/gm Oint Foilpak UD ONE (10:07)
[2016-11-25] MEDS ORDERED: Lidocaine 1% Inj (20ml) INFIL ONE (10:14)
[2016-11-25] MEDS ORDERED: Bacitracin 500 Units/gm Oint Foilpak UD TOP ONE (10:15)
--- NOTE | 2016-11-25 10:19 | C.PDOC ---
History Of Present Illness 56 year old male with a past medical histroy of CKD, HTN, hyperlipidemia presents to the emergency room s/p fall down the stairs this morning because he "missed a step". He states he is bleeding from his nose and face. He did not pass out and did not hit is head. He is unaware of his last tetanus vaccination. Denied chest pain, shortness of breath, palpitations, or pain/ swelling or injury to other extremities. Time Seen by Provider: 11/25/16 09:32 Chief Complaint (Nursing): Abnormal Skin Integrity History Per: Patient History/Exam Limitations: no limitations Onset/Duration Of Symptoms: Hrs Current Symptoms Are (Timing): Still Present Quality Of Symptoms: Painful Severity: Mild Pain Scale Rating Of: 3 Recent travel outside of the [place]: No Past Medical History Vital Signs: Last Vital Signs Temp 97.8 F 11/25/16 10:23 Pulse 98 H 11/25/16 10:23 Resp 20 11/25/16 10:23 BP 153/98 H 11/25/16 10:23 Pulse Ox 99 11/25/16 10:39 - Medical History PMH: HIV, HTN, Hypercholesterolemia ((?)), End Stage Renal Disease (Right Fistula), Chronic Kidney Disease (RIGHT KIDNEY TRANSPLANT 2012) Denies: Pneumonia Family History: States: Unknown Family Hx - Social History Hx Tobacco Use: No Hx Alcohol Use: No Hx Substance Use: No - Immunization History Hx Tetanus Toxoid Vaccination: Yes Hx Influenza Vaccination: Yes Hx Pneumococcal Vaccination: Yes Review Of Systems Constitutional: Negative for: Fever, Chills Eyes: Negative for: Pain ENT: Positive for: Other (lac to nose, nose bleed). Negative for: Ear Pain Cardiovascular: Negative for: Chest Pain, Palpitations Respiratory: Negative for: Cough, Shortness of Breath Gastrointestinal: Negative for: Nausea, Vomiting, Abdominal Pain Genitourinary: Negative for: Dysuria Musculoskeletal: Negative for: Neck Pain, Shoulder Pain, Back Pain, Leg Pain Neurological: Negative for: Weakness, Numbness, Confusion Physical Exam - Physical Exam Appears: Non-toxic, Toxic Skin: Normal Color, Warm Head: Atraumatic, Normacephalic, Other Nose: Other (Laceration under 1cm base of R nare and 1.5 cm liner on top of nose , linear abrasions on top of nose. blood in nares) Oral Mucosa: Moist Tongue: Normal Appearing Teeth: Other (missing teeth, poor dentition, upper frontal tooth with some blood around base but in place.) Neck: Normal Cardiovascular: Rhythm Regular Respiratory: Normal Breath Sounds Gastrointestinal/Abdominal: Normal Exam, Bowel Sounds Back: Normal Inspection, No CVA Tenderness Extremity: Normal ROM Extremity: Bilateral: Atraumatic Neurological/Psych: Oriented x3, Normal Speech, Normal Cognition Gait: Steady ED Course And Treatment O2 Sat by Pulse Oximetry: 99 Laceration - Laceration Repair No standard instances Wound Length (In cm): 1cm Description Of Wound: Irregular Wound Cleansed With: Betadine Anesthesia: Lidocaine 1% (2.5 cc used ) Wound Examination: Foreign Material Removed W/Irrigation Wound Closure: Steri Strips, Suture (5.0 Nylon 3 sutures inserted) Suture Technique And Material Used: Interrupted Wound Complexity: Intermediate Medical Decision Making Medical Decision Making: Plan: - Tylenol - Laceration repair - Tdap given Lac repaired and dressed. Patient tolerated well. Disposition - Disposition Referrals: Paulette Flowers MD [Primary Care Provider] - Disposition: HOME/ ROUTINE Disposition Time: 10:15 Condition: STABLE Additional Instructions: Patient is to take Tylenol as needed for pain. Wound care discussed. Patient is to follow up with his primary care within a week for follow up care. He is to have the sutures removed within 7-10 days. Patient is to return to the ED if he notices signs of infection of develops fever/chills. Instructions: Care For Your Stitches (ED), Laceration (ED) Forms: General Discharge Instructions - Clinical Impression Clinical Impression: Laceration
[2016-11-25 10:23] VITALS: BP 153/98; PULSE 98; TEMP 97.8
[2016-11-25 10:24] VITALS: O2SAT 99
== END 2016-11-25 10:57 | disposition home or self-care (01) ==
LOC: SUPCPDRO 09:24 → C.ER 09:24
DX: S01.21XA Laceration without foreign body of nose, initial encounter (principal); W10.9XXA Fall (on) (from) unspecified stairs and steps, initial encounter

== ENCOUNTER 2016-12-17 12:07 | Emergency (ER) | payer MEDICARE ==
[2016-12-17 12:07] VITALS: BMI 27.8
[2016-12-17 12:17] VITALS: BP 134/95; PULSE 103; RESP 18; TEMP 97.8; O2SAT 97
--- NOTE | 2016-12-17 12:35 | C.PDOC ---
History Of Present Illness 56 year old male with PMHx of HIV, HTN, ESRD presents to the ED for removal of sutures form his right nostril. Pt had sutures placed on 11/25; he denies any swelling, discharge, fever/chills. Time Seen by Provider: 12/17/16 12:18 Chief Complaint (Nursing): Suture/Staple Removal History Per: Patient History/Exam Limitations: no limitations Onset/Duration Of Symptoms: Days Ago Current Symptoms Are (Timing): Better Quality Of Symptoms: denies: Swollen, Draining Severity: Mild Past Medical History Reviewed: Historical Data, Nursing Documentation, Vital Signs Vital Signs: Last Vital Signs Temp 97.8 F 12/17/16 12:10 Pulse 103 H 12/17/16 12:10 Resp 18 12/17/16 12:10 BP 134/95 H 12/17/16 12:10 Pulse Ox 97 12/17/16 13:24 - Medical History PMH: HIV, HTN, Hypercholesterolemia ((?)), End Stage Renal Disease (Right Fistula), Chronic Kidney Disease (RIGHT KIDNEY TRANSPLANT 2012) Surgical History: No Surg Hx Family History: States: No Known Family Hx - Social History Hx Tobacco Use: No Hx Alcohol Use: No Hx Substance Use: No - Immunization History Hx Tetanus Toxoid Vaccination: Yes Hx Influenza Vaccination: Yes Hx Pneumococcal Vaccination: Yes Review Of Systems Except As Marked, All Systems Reviewed And Found Negative. Constitutional: Negative for: Fever, Chills ENT: Positive for: Other (right nare sutures) Cardiovascular: Negative for: Chest Pain, Palpitations Respiratory: Negative for: Cough, Shortness of Breath Physical Exam - Physical Exam Appears: Well, Non-toxic, No Acute Distress Skin: Normal Color, Warm, Dry Nose: No Deformity, No Tenderness, Other (right nare with 2 intact sutures, well healed, non-erythematous. Inside of nose as well as mustache area examined , no other sutures visualized) Oral Mucosa: Moist Cardiovascular: Rhythm Regular Respiratory: Normal Breath Sounds, No Rales, No Rhonchi, No Wheezing Neurological/Psych: Oriented x3 ED Course And Treatment O2 Sat by Pulse Oximetry: 97 (RA) Pulse Ox Interpretation: Normal Progress Note: Two sutures removed by me, patient tolerated well. Area examined well - no other sutures visualized. Prior chart stated 3 sutures placed, but I only visualized and removed 2. Patient tolerated well. He was instructed to follow up with PMD/clinic in 1-2 days, and understands he should return to Ed if symptoms worsen. Reassessment Condition: Improved Disposition Counseled Patient/Family Regarding: Diagnosis, Need For Followup - Disposition Referrals: Paulette Flowers MD [Staff Provider] - Disposition: HOME/ ROUTINE Disposition Time: 12:40 Condition: STABLE Additional Instructions: SEGUIMIENTO CON CORTES MDICO EN 1-2 MYLES DEVUELVA A LA MERLE DE EMERGENCIA SI LOS SNTOMAS EMPEORARAN Instructions: Stitches Removal (ED) Forms: [employer] (Tajik) Print Language: MOHAWK - POA Present On Arrival: None - Clinical Impression Clinical Impression: Removal of suture - Scribe Statement The provider has reviewed the documentation as recorded by the Scribe Parris Larios Provider Attestation: Provider Scribe Attestation: All medical record entries made by the Scribe were at my direction and personally dictated by me. I have reviewed the chart and agree that the record accurately reflects my personal performance of the history, physical exam, medical decision making, and the department course for this patient. I have also personally directed, reviewed, and agree with the discharge instructions and disposition.
== END 2016-12-17 12:41 | disposition home or self-care (01) ==
LOC: C.ER 12:07
DX: Z48.02 Encounter for removal of sutures (principal)

== ENCOUNTER 2018-02-03 12:48 | Emergency (ER) | payer MEDICARE ==
[2018-02-03 12:54] VITALS: BMI 30.4
--- NOTE | 2018-02-03 14:05 | C.PDOC ---
History Of Present Illness 57 y/o M c PMHx kidney transplant 2013 on Prednisone, HIV on HARRT with undetectable viral load (unknown CD4) p/w cough productive of white sputum, body aches, shortness of breath x 4 days. States it feels like a cold. He went to [facility] on Day 1 and was told his lung sounds were abnormal and instructed to follow up with pulmonology but next appointment is far away. Patient states cough has since become nonproductive. Denies fever, chest pain, nausea, vomiting, leg swelling. Time Seen by Provider: 02/03/18 13:12 Chief Complaint (Nursing): Shortness Of Breath Past Medical History Vital Signs: Last Vital Signs Temp 98.3 F 02/03/18 12:54 Pulse 95 H 02/03/18 12:54 Resp 18 02/03/18 12:54 BP 149/100 H 02/03/18 12:54 Pulse Ox 99 02/03/18 12:54 - Medical History PMH: HIV, HTN, Hypercholesterolemia ((?)), End Stage Renal Disease (Right Fistul a), Chronic Kidney Disease (RIGHT KIDNEY TRANSPLANT 2012) Denies: Pneumonia Family History: States: Unknown Family Hx - Social History Hx Tobacco Use: No Hx Alcohol Use: No Hx Substance Use: No - Immunization History Hx Tetanus Toxoid Vaccination: Yes Hx Influenza Vaccination: Yes Hx Pneumococcal Vaccination: Yes Review Of Systems Except As Marked, All Systems Reviewed And Found Negative. Constitutional: Negative for: Fever Cardiovascular: Negative for: Chest Pain Physical Exam - Physical Exam Additional Physical Exam Comments: Constitutional: No acute distress. Head: Normocephalic. Atraumatic. Eyes: PERRL. ENT: Moist mucous membranes. Neck: Supple. Cardiovascular: Regular rate. Radial pulse 2+ bilaterally. Chest: No tenderness. Respiratory: Bibasilar crackles. GI: Soft. Nontender. Nondistended. Back: No CVA tenderness. Musculoskeletal: No tenderness or swelling of extremities. Skin: No rash. R forearm fistula. Neurologic: Alert, no focal deficit. ED Course And Treatment - Laboratory Results Result Diagrams: 02/03/18 14:47 02/03/18 14:47 O2 Sat by Pulse Oximetry: 99 Medical Decision Making Medical Decision Making: CXR FINDINGS: Examination limited by habitus. LUNGS: Biapical pleural thickening. Minimal subsegmental bibasilar atelectasis. Please note that chest x-ray has limited sensitivity for the detection of pulmonary masses. PLEURA: No significant pleural effusion identified. No definite pneumothorax . CARDIOVASCULAR: Heart size appears within normal limits. Ectatic aorta. OSSEOUS STRUCTURES: No acute osseous abnormality identified. VISUALIZED UPPER ABDOMEN: Unremarkable. OTHER FINDINGS: None. IMPRESSION: Biapical pleural thickening. Minimal subsegmental bibasilar atelectasis. Patient in no distress. Labs unremarkable. Discharged on Z pack, f/u pulm and PMD, return to ED for worsening pain, fever, vomiting, dyspnea, or any other problem. Disposition - Disposition Referrals: Paulette Flowers MD [Staff Provider] - Disposition: HOME/ ROUTINE Disposition Time: 15:13 Condition: STABLE Prescriptions: Azithromycin [Zithromax] 2 tab PO DAILY #6 tab Instructions: Viral Upper Respiratory Infection, Adult (DC) Forms: [employer] (Telugu) - Clinical Impression Clinical Impression: URI (upper respiratory infection)
--- NOTE | 2018-02-03 14:37 | RAD ---
HISTORY: cough, dyspnea, h/o HIV COMPARISON: Chest x-ray performed 11/04/16 TECHNIQUE: Chest PA and lateral FINDINGS: Examination limited by habitus. LUNGS: Biapical pleural thickening. Minimal subsegmental bibasilar atelectasis. Please note that chest x-ray has limited sensitivity for the detection of pulmonary masses. PLEURA: No significant pleural effusion identified. No definite pneumothorax . CARDIOVASCULAR: Heart size appears within normal limits. Ectatic aorta. OSSEOUS STRUCTURES: No acute osseous abnormality identified. VISUALIZED UPPER ABDOMEN: Unremarkable. OTHER FINDINGS: None. IMPRESSION: Biapical pleural thickening. Minimal subsegmental bibasilar atelectasis.
[2018-02-03 14:51] LABS: BASO # 0.1 K/uL (0.0-0.2); BASO % 0.6 % (0.0-2.0); EOS % 0.3 % (0.0-4.0); HEMOGLOBIN 14.9 g/dL (12.0-18.0); LYMPH % 11.8 % (20.0-40.0); MEAN CELL VOLUME 69.1 fL (80.0-94.0); MEAN CORPUSCULAR HEMOGLOBIN 22.1 pg (27.0-31.0); MONO # 0.9 K/uL (0.0-0.8); NEUT # 6.2 K/uL (1.8-7.0); NEUT % 76.3 % (50.0-75.0); NRBC % 0.1 % (0.0-2.0); RBC 6.71 Mil/uL (4.40-5.90); RED CELL DISTRIBUTION WIDTH 15.8 % (11.5-14.5); WHITE BLOOD COUNT 8.1 K/uL (4.8-10.8)
[2018-02-03 14:55] LABS: SQUAMOUS EPITHIAL < 1 /hpf (0-5); URINE BACTERIA RARE (<OCC); URINE BILIRUBIN NEGATIVE (NEGATIVE); URINE BLOOD NEGATIVE (NEGATIVE); URINE CLARITY Clear (Clear); URINE COLOR Yellow (YELLOW); URINE GLUCOSE (UA) NORMAL (Normal); URINE LEUKOCYTE ESTERASE NEG Leu/uL (Negative); URINE PROTEIN 2+ mg/dL (NEGATIVE); URINE UROBILINOGEN NORMAL mg/dL (0.2-1.0)
[2018-02-03 15:07] LABS: ALB/GLOB RATIO 1.3 (1.0-2.1); ALBUMIN 4.3 g/dL (3.5-5.0); CALCIUM 9.5 mg/dl (8.6-10.4)
[2018-02-03 15:40] VITALS: BP 173/90; PULSE 85; RESP 14; TEMP 98.6; O2SAT 100
--- NOTE | 2018-02-06 10:09 | CARD ---
APPROVED REPORT Date of service: 02/03/2018 EKG Measurement Heart [id number] <Conclusion> Normal sinus rhythm Possible Left atrial enlargement Borderline ECG
== END 2018-02-03 15:40 | disposition home or self-care (01) ==
LOC: C.ER 12:48
DX: J06.9 Acute upper respiratory infection, unspecified (principal)

== ENCOUNTER 2018-08-23 13:05 | Outpatient (CLI) | payer MEDICARE | END 2018-08-23 13:06 | disposition home or self-care (01) | LOC: C.LAB 13:05 ==

== ENCOUNTER 2018-09-08 04:08 | Emergency (ER) | payer MEDICARE | END 2018-09-08 07:26 | disposition home or self-care (01) | LOC: C.ER 04:08 | CPT/HCPCS: 71045; 80053; 82803; 85025; 93005; 96365; 99285; J0696; J7030 ==

== ENCOUNTER 2018-10-03 20:11 | Emergency (ER) | payer MEDICARE ==
[2018-10-03 20:11] VITALS: BMI 30.4
[2018-10-03 20:41] VITALS: BP 152/93; PULSE 98; RESP 20; TEMP 97.6; O2SAT 97
--- NOTE | 2018-10-03 20:49 | C.PDOC ---
History Of Present Illness Patient is a 57 year old male who presents to the ED requesting a new galvan bag after having one placed on 09/12/18 at [facility] due to BPH and urinary retention. Patient is requesting a new bag because his present one looks worn. He states the bag is draining fine. Denies any fever or chills. Time Seen by Provider: 10/03/18 20:45 Chief Complaint (Nursing): Medical Clearance History Per: Patient History/Exam Limitations: no limitations Associated Symptoms: denies: Fever, Chills Recent travel outside of the [place]: No Additional History Per: Patient Past Medical History Reviewed: Historical Data, Nursing Documentation, Vital Signs Vital Signs: Last Vital Signs Temp 97.6 F 10/03/18 20:26 Pulse 98 H 10/03/18 20:26 Resp 20 10/03/18 20:26 BP 152/93 H 10/03/18 20:26 Pulse Ox 97 10/03/18 20:26 Primary Care Provider: Paulette Flowers - Medical History PMH: HIV, HTN, Hypercholesterolemia ((?)), End Stage Renal Disease (Right Fistula), Chronic Kidney Disease (RIGHT KIDNEY TRANSPLANT 2012) Denies: Pneumonia Surgical History: No Surg Hx Family History: States: Unknown Family Hx - Social History Hx Tobacco Use: No Hx Alcohol Use: Yes Hx Substance Use: No - Immunization History Hx Tetanus Toxoid Vaccination: Yes Hx Influenza Vaccination: Yes Hx Pneumococcal Vaccination: Yes Review Of Systems Except As Marked, All Systems Reviewed And Found Negative. Constitutional: Negative for: Fever, Chills Physical Exam - Physical Exam Appears: Non-toxic, No Acute Distress Skin: Warm, Dry Head: Atraumatic, Normacephalic Eye(s): bilateral: Normal Inspection Oral Mucosa: Moist Neck: Normal ROM, Supple Chest: Symmetrical, No Deformity Cardiovascular: Rhythm Regular Respiratory: Other (NARD) Gastrointestinal/Abdominal: Soft, No Tenderness, No Distention, No Guarding Extremity: Normal ROM Neurological/Psych: Oriented x3 ED Course And Treatment O2 Sat by Pulse Oximetry: 97 (on RA) Pulse Ox Interpretation: Normal Disposition Counseled Patient/Family Regarding: Diagnosis, Need For Followup - Disposition Referrals: YOUR,UROLOGIST [Other] Disposition: HOME/ ROUTINE Disposition Time: 20:45 Condition: GOOD Additional Instructions: FOLLOW UP WITH YOUR PMD AND/OR UROLOGIST TO FOR LEG BAG SUPPLIES Instructions: How to Care for Your Galvan Catheter, Male Forms: [facility] (Trinidadian) - Clinical Impression Clinical Impression: Problem with Galvan catheter - Scribe Statement The provider has reviewed the documentation as recorded by the Brooksibrakesh Zeng All medical record entries made by the Brooksibe were at my direction and personally dictated by me. I have reviewed the chart and agree that the record accurately reflects my personal performance of the history, physical exam, medical decision making, and the department course for this patient. I have also personally directed, reviewed, and agree with the discharge instructions and disposition.
== END 2018-10-03 21:09 | disposition home or self-care (01) ==
LOC: C.ER 20:11
DX: T83.9XXA Unspecified complication of genitourinary prosthetic device, implant and graft, initial encounter (principal); E78.00 Pure hypercholesterolemia, unspecified; I12.0 Hypertensive chronic kidney disease with stage 5 chronic kidney disease or end stage renal disease; N18.6 End stage renal disease; Z94.0 Kidney transplant status; N40.1 Benign prostatic hyperplasia with lower urinary tract symptoms